=== PATIENT | male | born 1945 | race Caucasian/White ===

== ENCOUNTER 2020-03-23 13:59 | Inpatient (IN) | payer MEDICARE ==
[~2020-03-23 13:59] MED LIST: Iopamidol-370 76% 500 ML 1 ML ONE
[2020-03-23 14:22] LABS: #Eosinphils 0.1 thou/uL (0.0-0.7); #Lymphocytes 1.2 thou/uL (1.20-3.40); #Monocytes 0.7 thou/uL (0.11-0.59); #Neutrophils 4.9 thou/uL (1.40-6.50); %Basophils 0.1 % (0.0-1.0); %Eosinophils 1.2 % (0.0-10.0); %Monocytes 9.9 % (0.0-10.0); %Neutrophils 70.7 % (42.0-75.0); Hemoglobin 13.7 g/dL (14.0-18.0); Mean Corpuscular HGB CONC 34.1 g/dL (32.0-36.0); Mean Corpuscular Hemoglobin 32.4 pg (27.0-31.0); Mean Corpuscular Volume 95.1 fL (78.0-98.0); Mean Platelet Volume 8.9 fL (7.4-10.4); Platelet Count 210 thou/uL (130-400); RBC Distribution Width 12.3 % (11.5-14.5); Red Blood Cell (RBC) Count 4.23 mill/uL (4.70-6.10); White Blood Cell (WBC) Count 6.9 thou/uL (4.8-10.8)
[2020-03-23 14:28] LABS: PTT 26.7 sec (22.9-36.1); Prothrombin Time 13.2 sec (12.0-14.7)
[2020-03-23 14:41] LABS: ALT (SGPT) 68 U/L (8-55); AST (SGOT) 54 U/L (5-34); Alkaline Phosphatase 72 U/L (40-110); Anion Gap 15 mmol/L (10-20); BUN (Urea Nitrogen) 19 mg/dL (8.4-25.7); Bilirubin, Total 0.4 mg/dL (0.2-1.2); CK (CPK) 86 U/L (30-200); Calc. Creatinine Clearance 0 mL/min (70-130); Calcium 9.2 mg/dL (7.8-10.44); Carbon Dioxide 21 mmol/L (23-31); Chloride 108 mmol/L (98-107); Globulin 3.2 g/dL (2.4-3.5); Glucose 125 mg/dL (83-110); Potassium 4.4 mmol/L (3.5-5.1); Protein, Total 7.2 g/dL (5.8-8.1); Sodium 140 mmol/L (136-145)
--- NOTE | 2020-03-23 14:44 | CT ---
CT OF BRAIN PERFORMED WITHOUT CONTRAST ENHANCEMENT: 03/23/20 HISTORY: Left sided weakness. Small ventricular and sulcal prominence. There is no signs of intracerebral hemorrhage or extra-axial fluid collections. Mastoid air cells and visualized sinuses are clear. IMPRESSION: No acute intracranial abnormalities. Findings telephoned to Dr. Bain at 1410 hours.
[2020-03-23 15:11] LABS: CKMB 2.2 ng/mL (0-6.6)
[2020-03-23] MEDS ORDERED: Fentanyl 100 MCG/2 ML VIAL ONE (15:41)
[2020-03-23] MEDS ORDERED: niCARdipine 25 MG in Sodium Chloride 0.9% 250 ML 250 ML IVPB PRN (16:34)
[2020-03-23] MEDS ORDERED: Cepastat Lozenges 1 LOZ PO PRN (16:34)
[2020-03-23] MEDS ORDERED: Acetaminophen 325 MG TAB PO PRN (16:34)
[2020-03-23] MEDS ORDERED: Labetalol HCl 100 MG/20 ML VIAL SLOW IVP PRN (16:34)
[2020-03-23] MEDS ORDERED: Albuterol Sulfate 2.5 mg/3 ml Neb NEB PRN (16:34)
[2020-03-23] MEDS ORDERED: hydrALAZINE 20 MG/ML VIAL SLOW IVP PRN ×2 (16:34)
[2020-03-23] MEDS ORDERED: Sodium Chloride 0.65% Nasal 44 ML BOT EA NARE PRN (16:34)
[2020-03-23] MEDS ORDERED: [UNRECOGNIZED DRUG - REMARK] FS SCH (16:34)
[2020-03-23] MEDS ORDERED: Loperamide HCl 2 MG CAP PO PRN (16:34)
[2020-03-23] MEDS ORDERED: Senokot S 8.6-50 MG TAB PO PRN (16:34)
[2020-03-23] MEDS ORDERED: HYDROcodone/Acetaminophen 5/325 mg Tablet PO PRN (16:34)
[2020-03-23] MEDS ORDERED: Ondansetron ODT 4 MG TAB SL PRN (16:34)
[2020-03-23] MEDS ORDERED: Benzonatate 100 MG CAP PO PRN (16:34)
[2020-03-23] MEDS ORDERED: Acetaminophen 650 MG Suppository PR PRN (16:34)
[2020-03-23] MEDS ORDERED: Bisacodyl 10 MG SUPP PR PRN (16:34)
[2020-03-23] MEDS ORDERED: Ondansetron PF 4 MG/2 ML Vial IVP PRN ×2 (16:34)
[2020-03-23] MEDS ORDERED: Ondansetron ODT 4 MG TAB PO PRN (16:34)
[2020-03-23] MEDS ORDERED: Diabetic Tussin 200 MG/10 ML UDCUP PO PRN (16:34)
[2020-03-23] MEDS ORDERED: Calcium Carbonate 500 MG ChewTAB PO PRN (16:34)
[2020-03-23] MEDS ORDERED: Loratadine 10 MG TAB PO PRN (16:34)
--- NOTE | 2020-03-23 18:21 | PDOC.HHP ---
Hospitalist HPI - History of Present Illness Stroke History of Present Illness: 75-year-old male who had Covid positive on March 13, 2020, patient came to emergency room with a stroke alert, patient was having acute onset of left arm and left lower extremity numbness, patient reports that the symptoms started 30 minutes before coming to the emergency room while he was driving, patient also had blurry vision through left eye, patient has underlying history of atrial fibrillation and when he presented to emergency room at the time his blood pressure was 202/140, subsequently blood pressure reduced to 185/103, in the emergency room CT brain did not show any acute process and subsequently patient had CT angiography, which showed abrupt termination of right posterior cerebral P1 arterial segment, patient was given TPA and subsequently patient had clinical improvement, patient is being admitted in ICU for post TPA ED Course: Patient is given fentanyl 100 mcg, IV fluid 1 L given, TPA given at 2:46 PM VITAL SIGNS Arely Mar 23, 2020 14:20 TORITO Martinez [place] Brooke BP: 154/90, MAP: 111, Pulse: 82, Resp: 20, Temp: 97.6 (Oral), Pain: 0, O2 sat: 100 on (Room Air), Time: 03/23/2020 14:20. VITAL SIGNS Arely Mar 23, 2020 14:41 TORITO Martinez [place] Brooke BP: 133/92, Pulse: 81, Resp: 18, Temp: 97.6 (Oral), Pain: 0, O2 sat: 100 on (Room Air), Time: 03/23/2020 14:41. VITAL SIGNS Arely Mar 23, 2020 15:00 TORITO Martinez [place] Brooke BP: 157/102, MAP: 120, Pulse: 86, Resp: 16, Pain: 0, O2 sat: 98 on (Room Air), Time: 03/23/2020 15:00. VITAL SIGNS Arely Mar 23, 2020 15:15 TORITO Martinez [place] Brooke BP: 152/92, MAP: 112, Pulse: 88, Resp: 16, Pain: 0, O2 sat: 98 on (Room Air), Time: 03/23/2020 15:15. VITAL SIGNS Arely Mar 23, 2020 15:30 TORITO Martinez [place] Brooke BP: 130/71, Pulse: 88, Resp: 16, Pain: 6, O2 sat: 97 on (Room Air), Time: 03/23/2020 15:30. VITAL SIGNS Arely Mar 23, 2020 15:45 TORITO Martinez [place] Brooke BP: 142/74, Pulse: 96, Resp: 18, Pain: 6, O2 sat: 100 on (Room Air), Time: 03/23/2020 15:45. VITAL SIGNS Arely Mar 23, 2020 16:15 TORITO Martinez [place] Brooke BP: 139/70, Pulse: 94, Resp: 16, Temp: 98.5 (Oral), Pain: 0, O2 sat: 100 on (Room Air), Time: 03/23/2020 16:15. VITAL SIGNS Arely Mar 23, 2020 16:00 TORITO Martinez [place] Brooke BP: 141/63, MAP: 89, Pulse: 83, Resp: 16, Pain: 0, O2 sat: 99 on (Room Air), Time: 03/23/2020 16:00. VITAL SIGNS Arely Mar 23, 2020 16:30 TORITO Martinez [place] Brooke BP: 135/83, MAP: 100, Pulse: 86, Resp: 16, Pain: 0, O2 sat: 97 on (Room Air), Time: 03/23/2020 16:30. VITAL SIGNS [facility] Mar 23, 2020 16:45 TORITO Martinez [place] Brooke BP: 132/82, MAP: 98, Pulse: 91, Resp: 16, Pain: 0, O2 sat: 100 on (Room Air), Time: 03/23/2020 16:45. Hospitalist ROS - Review of Systems Constitutional: reports: weakness. denies: fever, chills, sweats, malaise, other Eyes: denies: pain, vision change, conjunctivae inflammation, eyelid inflammation, redness, other ENT: denies: ear pain, ear discharge, nose pain, nose discharge, nose congestion, mouth pain, mouth swelling, throat pain, throat swelling, other Respiratory: denies: cough, dry, shortness of breath, hemoptysis, SOB with excertion, pleuritic pain, sputum, wheezing, other Cardiovascular: denies: chest pain, palpitations, orthopnea, paroxysmal noc. dyspnea, edema, light headedness, other Gastrointestinal: denies: nausea, vomiting, abdominal pain, diarrhea, c onstipation, melena, hematochezia, other Genitourinary: denies: dysuria, frequency, incontinence, hematuria, retention, other Musculoskeletal: denies: neck pain, shoulder pain, arm pain, back pain, hand pain, leg pain, foot pain, other Skin: denies: rash, lesions, elvis, bruising, other Neurological: reports: weakness, numbness. denies: incoordination, change in speech, confusion, seizures, other - Medication Medications: Allergies No Known Allergies Allergy (Unverified 03/23/20 17:42) Resuscitation Status - Order Detail: 03/23/20 15:24 Resuscitation Status Routine Resuscitation Status: FULL: Full Resuscitation Home medication Allopurinol 100 mg twice daily Hospitalist History - Past Medical History Other Medical History: Atrial fibrillation Gout Carotid stenosis Obesity - Past Surgical History Other Surgical History: Right below-knee amputation Appendicectomy Left lower extremity bone graft Testicular surgery when he was a child - Family History Other Family History: No strong family history of premature coronary artery disease stroke or cancer - Social History Other Social History: Patient has history of alcohol use, less than 5 drinks per day, he is former smoker, he quit smoking more than 10 years ago, he lives at home with family, no illicit drug abuse - Exam General Appearance: NAD, awake alert Eye: PERRL, anicteric sclera ENT: normocephalic atraumatic, no oropharyngeal lesions Neck: supple, symmetric, no JVD, no thyromegaly Heart: no murmur, no gallops, irregular Respiratory: no wheezes, no rales, no ronchi Gastrointestinal: soft, non-tender, non-distended, normal bowel sounds, no palpable masses Gastrointestinal - other findings: Obesity Extremities: no cyanosis, no clubbing, no edema Extremities - other findings: Right below-knee amputation Skin: normal turgor, no lesions Neurological - other findings: Patient moves all 4 limbs, speech normal, Musculoskeletal: normal tone, normal strength Psychiatric: normal affect, normal behavior, A&O x 3 Hospitalist Results - Labs Result Diagrams: 03/23/20 14:11 03/23/20 14:11 Lab results: WBC 6.9 thou/uL (4.8-10.8) 03/23/20 14:11 Hgb 13.7 g/dL (14.0-18.0) L 03/23/20 14:11 Hct 40.2 % (42.0-52.0) L 03/23/20 14:11 MCV 95.1 fL (78.0-98.0) 03/23/20 14:11 Plt Count 210 thou/uL (130-400) 03/23/20 14:11 Neutrophils % 70.7 % (42.0-75.0) 03/23/20 14:11 Sodium 140 mmol/L (136-145) 03/23/20 14:11 Potassium 4.4 mmol/L (3.5-5.1) 03/23/20 14:11 Chloride 108 mmol/L (98-107) H 03/23/20 14:11 Carbon Dioxide 21 mmol/L (23-31) L 03/23/20 14:11 BUN 19 mg/dL (8.4-25.7) 03/23/20 14:11 Creatinine 0.94 mg/dL (0.7-1.3) 03/23/20 14:11 Glucose 125 mg/dL (83-110) H 03/23/20 14:11 Calcium 9.2 mg/dL (7.8-10.44) 03/23/20 14:11 Total Bilirubin 0.4 mg/dL (0.2-1.2) 03/23/20 14:11 AST 54 U/L (5-34) H 03/23/20 14:11 ALT 68 U/L (8-55) H 03/23/20 14:11 Alkaline Phosphatase 72 U/L (40-110) 03/23/20 14:11 Creatine Kinase 86 U/L (30-200) 03/23/20 14:11 CK-MB (CK-2) 2.2 ng/mL (0-6.6) 03/23/20 14:11 Troponin I 1.936 ng/mL (< 0.028) H* 03/23/20 14:11 Serum Total Protein 7.2 g/dL (5.8-8.1) 03/23/20 14:11 Albumin 4.0 g/dL (3.4-4.8) 03/23/20 14:11 - EKG Interpretation EKG: Atrial fibrillation pulse 94 QRS 64 no STEMI. - Radiology Interpretation Other Status: image reviewed by me Additional Comment: CT brain based on my review no acute intracranial process CT angiography showing abrupt termination of the right posterior cerebral P1 arterial segment, suggestive of acute thrombotic/embolic event, atherosclerosis with the stenosis of each internal carotid artery Patchy upper lobe infiltrate consistent with Covid pneumonitis Hospitalist H&P A/P - Problem (1) Acute ischemic cerebrovascular accident (CVA) involving posterior cerebral artery territory Code(s): I63.539 - CEREB INFRC D/T UNSP OCCLS OR STENOS OF UNSP POST CEREB ART Status: Acute (2) Atrial fibrillation Code(s): I48.91 - UNSPECIFIED ATRIAL FIBRILLATION Status: Acute (3) NSTEMI (non-ST elevated myocardial infarction) Code(s): I21.4 - NON-ST ELEVATION (NSTEMI) MYOCARDIAL INFARCTION Status: Acute (4) Pneumonia due to 2019 novel coronavirus Code(s): U07.1 - COVID-19; J12.89 - OTHER VIRAL PNEUMONIA Status: Acute (5) Gout Code(s): M10.9 - GOUT, UNSPECIFIED Status: Acute (6) Hypertension Code(s): I10 - ESSENTIAL (PRIMARY) HYPERTENSION Status: Acute (7) Dyslipidemia Code(s): E78.5 - HYPERLIPIDEMIA, UNSPECIFIED Status: Acute - Plan Plan: Admission to ICU Neurology consultation for post TPA CVA Cardiology consultation for NSTEMI and atrial fibrillation Aspirin and Lovenox will be started after 24 hours Patient will need long-term anticoagulation with Eliquis versus Xarelto upon discharge We will start metoprolol 25 mg twice daily Neuro check q. 1 hourly Echocardiography will be obtained as a part of stroke work-up and atrial fibrillation and NSTEMI MRI brain will obtain tomorrow We will start Lipitor 40 mg p.o. nightly Stroke team will be consulted Patient will need rehab evaluation. Regarding Covid pneumonia we will start Rocephin and azithromycin empirically Continue vitamin C, zinc sulfate, vitamin D3 His home medication will be reconciled Serial cardiac enzymes x3 Bedside swallow evaluation after that we will start a heart healthy diet Gentle IV fluid overnight 75 mill per hour only for 1 L and then discontinue DVT prophylaxis patient will need Lovenox GI prophylaxis Pepcid CODE STATUS patient is full code Disposition plan based on clinical course
[2020-03-23] MEDS: cefTRIAXone\\ROCEPHIN 1 GM in Sodium Chloride 0.9% 100 ML IVPB SCH (19:56)
[2020-03-23] MEDS: Metoprolol Tartrate 25 MG TAB PO SCH (19:57)
[2020-03-23] MEDS: Famotidine 20 MG TAB PO SCH (19:57)
[2020-03-23] MEDS: Atorvastatin Calcium 40 MG TAB PO SCH (19:57)
[2020-03-23] MEDS: Sodium Chloride 0.45% 1,000 ML IV SCH (19:57)
[2020-03-23] MEDS: Famotidine/PF 20 mg/2ml Vial SLOW IVP SCH (19:58)
[2020-03-23 21:18] LABS: SARS-CoV-2 MS2 Positive; SARS-CoV-2 N Gene Positive; SARS-CoV-2 S Gene Positive; SARS-CoV-2 by NAA DETECTED (NotDetected); SARS-CoV-2 orf1ab Positive
[2020-03-24 04:10] LABS: Bacteria/HPF None Seen HPF (None Seen); Bilirubin Negative (Negative); Blood, Urine Negative (Negative); Clarity Clear (Clear); Glucose, Urine (Dipstick) Normal (Negative); Ketone, Urine Negative (Negative); Leukocyte Negative Leu/uL (Negative); Nitrite Negative (Negative); Protein, Urine (Dipstick) 20 mg/dL (Neg-Trace); RBC/HPF 0-3 HPF (0-3); Specific Gravity, Urine 1.031 (1.002-1.036); Squamous Epithelial None Seen HPF (0-3); Urobilinogen Normal mg/dL (Less than 2); WBC/HPF 0-3 HPF (0-3)
[2020-03-24 04:13] LABS: Urine Culture Reflex No No
--- NOTE | 2020-03-24 07:21 | CT ---
PRELIMINARY REPORT/DIRECT RADIOLOGY/EMERGENCY AFTER HOURS PROCEDURE: EXAM: CT Head Without Intravenous Contrast. CLINICAL HISTORY: F/U TPA TECHNIQUE: Axial computed tomography images of the head/brain without intravenous contrast. COMPARISON: March 23, 2020 FINDINGS: BRAIN: No acute intraparenchymal hemorrhage. No mass lesion. Ischemic changes in the medial aspect o f the right temporal lobe are revealed. VENTRICLES: No hydrocephalus. ORBITS: The orbits are unremarkable. SINUSES AND MASTOIDS: The paranasal sinuses and mastoid air cells are clear. SOFT TISSUES: No significant facial or scalp soft tissue swelling evident. No radiopaque foreign body is seen. BONES: No acute skull fracture. IMPRESSION: Ischemic changes in the right temporal lobe are now visualized. No evidence of intracran ial hemorrhage. ELECTRONICALLY SIGNED BY: Sabas Toro MD Mar 24, 2020 4:59:45 AM TOOL/DIE MAKER FINAL REPORT BRAIN CT WITHOUT CONTRAST: EMERGENCY AFTER HOURS EXAM TIME: 4:32 AM. DATE: 03/24/2020. Developing abnormal low-attenuation changes in the medial posterior right temporal lobe/occipital lob e, evidence for developing infarct/ischemia. No evidence for acute hemorrhage. This report agrees with preliminary report. Transcribed Date/Time: 03/24/2020 8:33 AM
[2020-03-24] MEDS: Sodium Chloride 0.45% 1,000 ML IV SCH (08:30)
[2020-03-24] MEDS: Famotidine 20 MG TAB PO SCH ×2 (10:03→21:16)
[2020-03-24] MEDS: Ascorbic Acid 500 mg Chewable Tablet PO SCH (10:03)
[2020-03-24] MEDS: Cholecalciferol 1,000 UNITS (25 MCG) TAB PO SCH (10:03)
[2020-03-24] MEDS: Famotidine/PF 20 mg/2ml Vial SLOW IVP SCH ×2 (10:04→22:06)
[2020-03-24] MEDS: Metoprolol Tartrate 25 MG TAB PO SCH ×2 (10:04→21:16)
[2020-03-24] MEDS: Allopurinol 100 MG TAB PO SCH ×2 (10:04→21:16)
[2020-03-24] MEDS: Zinc Sulfate 220 MG CAP PO SCH (10:04)
--- NOTE | 2020-03-24 10:22 | RAD ---
EXAM: Chest one view: HISTORY: Weakness coughing diarrhea lethargy COMPARISON: None FINDINGS: Heart size: Within normal limits. Lungs: Minimal patchy alveolar and groundglass opacity changes in the left midlung zone which certain ly could represent minimal early findings of Covid pneumonia. No evidence for confluent lobar pneumonia, significant pleural effusion, acute edema, or pneumothorax , or other significant acute process. IMPRESSION: Minimal patchy alveolar and groundglass opacity changes in the left midlung zone which certainly coul d represent minimal or early Covid pneumonia. Continued short-term follow-up.
--- NOTE | 2020-03-24 12:54 | PDOC.HOSPP ---
- Subjective Encounter Date: 03/24/20 Encounter Time: 08:30 Subjective: Patient seen and examined bedside today, patient has significant clinical improvement, he denies any fever or chills, he denies any cough or shortness of breath, he is on room air, - Objective Vital Signs & Weight: Vital Signs (12 hours) Temp 03/24/20 03:00 98.2 F Weight Weight 235 lb Most Recent Monitor Data Heart Rate from ECG 65 NIBP 124/69 NIBP BP-Mean 87 Respiration from ECG 20 SpO2 100 I&O: 03/23/20 03/24/20 03/25/20 06:59 06:59 06:59 Intake Total 832 Output Total 1100 Balance -268 Result Diagrams: 03/23/20 14:11 03/23/20 14:11 Radiology Reviewed by me: Yes (Repeat CT brain showing ischemic changes in the right temporal lobe) EKG Reviewed by me: Yes (Nel cabrales) Hospitalist ROS - Review of Systems Constitutional: denies: fever, chills, sweats, weakness, malaise, other ENT: denies: ear pain, ear discharge, nose pain, nose discharge, nose congestion, mouth pain, mouth swelling, throat pain, throat swelling, other Respiratory: denies: cough, dry, shortness of breath, hemoptysis, SOB with excertion, pleuritic pain, sputum, wheezing, other Cardiovascular: denies: chest pain, palpitations, orthopnea, paroxysmal noc. dyspnea, edema, light headedness, other Gastrointestinal: denies: nausea, vomiting, abdominal pain, diarrhea, constipation, melena, hematochezia, other Genitourinary: denies: dysuria, frequency, incontinence, hematuria, retention, other Musculoskeletal: denies: neck pain, shoulder pain, arm pain, back pain, hand pain, leg pain, foot pain, other Skin: denies: rash, lesions, elvis, bruising, other - Medication Medications: Active Medications Generic Name Dose Route Start Last Admin Trade Name Freq PRN Reason Stop Dose Admin Allopurinol 100 mg 03/24/20 09:00 03/24/20 10:04 Allopurinol 100 Mg Tab PO 100 mg BID YASEMIN Administration Ascorbic Acid 1,000 mg 03/24/20 09:00 03/24/20 10:03 Ascorbic Acid 500 Mg Chewable Tablet PO 1,000 mg DAILY YASEMIN Administration Atorvastatin Calcium 40 mg 03/23/20 21:00 03/23/20 19:57 Atorvastatin Calcium 40 Mg Tab PO 40 mg HS YASEMIN Administration Cholecalciferol 1,000 units 03/24/20 09:00 03/24/20 10:03 Cholecalciferol 1,000 Units (25 Mcg) Tab PO 1,000 units DAILY YASEMIN Administration Famotidine 20 mg 03/23/20 21:00 03/24/20 10:03 Famotidine 20 Mg Tab PO 20 mg BID YASEMIN Administration Famotidine 20 mg 03/23/20 21:00 03/24/20 10:04 Famotidine/Pf 20 Mg/2ml Vial SLOW IVP Not Given Q12HR YASEMIN Ceftriaxone Sodium 1 gm/ 100 mls @ 200 mls/hr 03/23/20 18:00 03/23/20 19:56 Sodium Chloride IVPB 100 mls 1800 YASEMIN Administration Metoprolol Tartrate 25 mg 03/23/20 21:00 03/24/20 10:04 Metoprolol Tartrate 25 Mg Tab PO 25 mg BID YASEMIN Administration Miscellaneous Information 1 each 03/23/20 16:34 03/23/20 18:23 Communication Order- Alteplase 03/23 FS 03/24/20 15:00 Not Given NOW [facility] Zinc Sulfate 220 mg 03/24/20 09:00 03/24/20 10:04 Zinc Sulfate 220 Mg Cap PO 220 mg DAILY YASEMIN Administration - Exam General Appearance: NAD, awake alert Eye: PERRL, anicteric sclera ENT: normocephalic atraumatic, no oropharyngeal lesions Neck: supple, symmetric, no JVD, no thyromegaly Heart: no murmur, no gallops, no rubs, irregular Respiratory: no wheezes, no rales, no ronchi Gastrointestinal: soft, non-tender, non-distended, normal bowel sounds Extremities: no cyanosis, no clubbing Extremities - other findings: Right below-knee amputation Skin: normal turgor, no lesions Neurological: no focal deficits Musculoskeletal: normal tone, normal strength, no muscle wasting Psychiatric: normal affect, normal behavior, A&O x 3 Hosp A/P (1) Acute ischemic cerebrovascular accident (CVA) involving posterior cerebral artery territory Code(s): I63.539 - CEREB INFRC D/T UNSP OCCLS OR STENOS OF UNSP POST CEREB ART Status: Acute (2) Atrial fibrillation Code(s): I48.91 - UNSPECIFIED ATRIAL FIBRILLATION Status: Acute Qualifiers: Atrial fibrillation type: paroxysmal Qualified Code(s): I48.0 - Paroxysmal atrial fibrillation (3) NSTEMI (non-ST elevated myocardial infarction) Code(s): I21.4 - NON-ST ELEVATION (NSTEMI) MYOCARDIAL INFARCTION Status: Acute (4) Pneumonia due to 2019 novel coronavirus Code(s): U07.1 - COVID-19; J12.89 - OTHER VIRAL PNEUMONIA Status: Acute (5) Gout Code(s): M10.9 - GOUT, UNSPECIFIED Status: Acute (6) Hypertension Code(s): I10 - ESSENTIAL (PRIMARY) HYPERTENSION Status: Acute (7) Dyslipidemia Code(s): E78.5 - HYPERLIPIDEMIA, UNSPECIFIED Status: Acute - Plan old records reviewed/req, continue antibiotics, PT/OT, respiratory therapy, DVT proph w/lovenox Discontinue IV fluid Resume diet Continue stroke team evaluation Neurology to see this patient today Cardiology will see him today MRI brain and echocardiography pending Eventually this patient will need chronic anticoagulation because of high chads 2 score Continue empiric antibiotic therapy for now Once 24 hours after TPA over then will transfer him to telemetry floor
--- NOTE | 2020-03-24 14:59 | CON ---
DATE OF CONSULTATION: 03/24/2020 INDICATION FOR CONSULTATION: This is a 75-year-old patient, who suffered a CVA, who has a history of atrial fibrillation. HISTORY OF PRESENT ILLNESS: This is a very unfortunate 75-year-old gentleman, who has a history of atrial fibrillation for the last 11 years. He has refused to take medications except for an aspirin saying that he does not want to take medications, who then presented after having some left-sided weakness and numbness and was found to have a CVA. He also underwent tPA. He had a right posterior cerebral artery essentially occlusion and this has now apparently improved. He only has some minimal facial numbness. Otherwise, he is doing quite well and perhaps some difficulty from the left eye vision. Otherwise, he has improved significantly from his left-sided weakness. At this time, he is in intensive care unit. He is alert, he is oriented, and he is conversing normally without difficulties. Also, on the CTA, it was noted that he does have significant carotid artery stenosis, both bilateral internal carotid arteries of 90%. This may have been the etiology of his CVA. Obviously, he has atrial fibrillation. This also may be one of the etiologies of the CVA; however, severe stenosis be more difficult for the clot to traverse the 90% stenosis of the internal carotid arteries. He also recently was diagnosed with COVID a couple of weeks ago, which also could cause increased coagulation. At this time, he denies any heart problems. He has had no problems except for the atrial fibrillation. He denies any chest pain or shortness of breath. He did state he possibly had some type of an echo or stress test many years ago, but is uncertain. Otherwise, he seems to be doing quite well and denies any chest pain that would indicate he has coronary disease. PAST MEDICAL HISTORY: Significant for the atrial fibrillation. He has had a right BKA after having a fracture that did not heal, but other than that, his past medical history is relatively unremarkable. He does have some gout also. He has had an appendectomy and also he has had a bone graft performed, which failed in his right leg, and he had his testicular surgery when he was a child. FAMILY HISTORY: Noncontributory. SOCIAL HISTORY: He has occasional alcohol use, less than 5 drinks a day. He smoked in the past, but stopped many years ago. He lives with his family. He has no illicit drug use. REVIEW OF SYSTEMS: Relatively unremarkable except what is noted in the History of Present Illness. PHYSICAL EXAMINATION: GENERAL: Reveals a well-developed, well-nourished, very pleasant gentleman, who is in no acute distress. VITAL SIGNS: His blood pressure is 111/72, heart rate is 65 and irregular, respiratory rate is about 20 to 25, O2 saturation is 99%. HEENT: Reveals the head to be normocephalic and atraumatic. He does have bilateral carotid bruits, but the pulses are present. CHEST: Clear to auscultation. CARDIOVASCULAR: Reveals an irregular rhythm. There were no gross murmurs noted. ABDOMEN: Soft and nontender. EXTREMITIES: Showed no clubbing, cyanosis, or edema. He is status post right BKA. NEUROLOGIC: He appears to be intact except for some mild left facial numbness. LABORATORY DATA: Shows a WBC of 6.9, hemoglobin 13.7, platelet count was 210,000. Sodium was 140, potassium 4.4, chloride 108, BUN was 19 with a creatinine 0.94. Blood sugar was 125. His troponin I was slightly elevated at 1.9. This would not be unusual in the face of a CVA. MB was only 2.2. Most likely, this indicates a type-2 myocardial infarction. IMPRESSION AND PLAN: 1. Right posterior cerebral artery distribution CVA, which underwent tPA and there is minimal residual at this time. I would continue his medications once the 24-hour period is up. He will need to be started on oral anticoagulation. 2. Atrial fibrillation. He has not been treated in the past, but now is willing to undergo oral therapy. We will start him on Eliquis or Xarelto once the 24-hour period has resolved. 3. Carotid artery stenosis. He will need to be seen by the CT surgeons for possible carotid endarterectomy. 4. History of gout. This will be dealt by the primary care service. 5. History of hypercholesterolemia. He has been placed on Lipitor. We will continue this medication. 6. History of recent COVID pneumonia. He appears to have gotten over this, but this also could be one of the etiologies of the CVA as they do have hypercoagulability. 7. Hypertension, this is under good control at this time. We will continue his present medications from a cardiac standpoint. At this time, I would suggest that we evaluate the echocardiogram and when he is more stable, I would suggest the CT surgery evaluation for his carotids. He will also need to undergo stress testing at some point in time to rule out evidence of underlying ischemia. The heart rate is very well controlled on the present medications. We will be more than happy to continue to follow the patient with you. Further recommendations will depend on the results of the echocardiogram as well as possible stress testing. Job ID: [id number]
--- NOTE | 2020-03-24 15:00 | CON ---
NEUROLOGY CONSULTATION DATE OF CONSULTATION: 03/24/2020 REASON FOR CONSULTATION: Stroke, status post tPA. HISTORY OF PRESENT ILLNESS: Mr. Pawan Muniz is a 75-year-old male with medical history significant for COVID positive on March 13, 2020, presented to the emergency room with acute onset left upper and lower extremity numbness with left facial paresthesias and blurred vision. Per patient, his symptoms started 30 minutes before he arrived to the emergency room while he was driving because he had blurred vision and it was difficult for him to see through his left eye. He does have history of atrial fibrillation and presented to the emergency room in hypertensive emergency. His blood pressure was 202/140, which was subsequently reduced to 185/103. In the emergency room, head CT was done, which was negative for acute intracranial pathology and CT angiography showed abrupt termination of the right posterior cerebral P1 arterial segment. He was given tPA, which showed significant improvement, and the patient is admitted in the ICU post-tPA. The patient denies nausea, vomiting, headache, chest pain, abdominal pain, but is positive for COVID, but denies any symptoms. His is also positive for COVID and is having respiratory symptoms at this time. REVIEW OF SYSTEMS: All systems reviewed and were negative except the pertinent positives and negatives mentioned in HPI. ALLERGIES: NO KNOWN DRUG ALLERGIES. HOME MEDICATIONS: Allopurinol 100 mg twice daily. PAST MEDICAL HISTORY: Atrial fibrillation, gout, carotid stenosis, and obesity. PAST SURGICAL HISTORY: Right below-knee amputation, appendectomy. FAMILY HISTORY: No family history of premature coronary artery disease or cancer. SOCIAL HISTORY: The patient has a history of alcohol abuse, 5 drinks per day. He is a former smoker, quit smoking 10 years ago. Lives at home with his family. Denies illegal drug use. Vital Signs & Weight: Vital Signs (12 hours) Temp 03/24/20 03:00 98.2 F Weight Weight 235 lb Most Recent Monitor Data Heart Rate from ECG 65 NIBP 124/69 NIBP BP-Mean 87 Respiration from ECG 20 SpO2 100 I&O: 03/23/20 03/24/20 03/25/20 06:59 06:59 06:59 Intake Total 832 Output Total 1100 Balance -268 Active Medications Generic Name Dose Route Start Last Admin Trade Name Freq PRN Reason Stop Dose Admin Allopurinol 100 mg 03/24/20 09:00 03/24/20 10:04 Allopurinol 100 Mg Tab PO 100 mg BID YASEMIN Administration Ascorbic Acid 1,000 mg 03/24/20 09:00 03/24/20 10:03 Ascorbic Acid 500 Mg Chewable Tablet PO 1,000 mg DAILY YASEMIN Administration Atorvastatin Calcium 40 mg 03/23/20 21:00 03/23/20 19:57 Atorvastatin Calcium 40 Mg Tab PO 40 mg HS YASEMIN Administration Cholecalciferol 1,000 units 03/24/20 09:00 03/24/20 10:03 Cholecalciferol 1,000 Units (25 Mcg) Tab PO 1,000 units DAILY YASEMIN Administration Famotidine 20 mg 03/23/20 21:00 03/24/20 10:03 Famotidine 20 Mg Tab PO 20 mg BID YASEMIN Administration Famotidine 20 mg 03/23/20 21:00 03/24/20 10:04 Famotidine/Pf 20 Mg/2ml Vial SLOW IVP Not Given Q12HR [facility] Ceftriaxone Sodium 1 gm/ 100 mls @ 200 mls/hr 03/23/20 18:00 03/23/20 19:56 Sodium Chloride IVPB 100 mls 1800 YASEMIN Administration Metoprolol Tartrate 25 mg 03/23/20 21:00 03/24/20 10:04 Metoprolol Tartrate 25 Mg Tab PO 25 mg BID YASEMIN Administration Miscellaneous Information 1 each 03/23/20 16:34 03/23/20 18:23 Communication Order- Alteplase 03/23 FS 03/24/20 15:00 Not Given NOW [facility] Zinc Sulfate 220 mg 03/24/20 09:00 03/24/20 10:04 Zinc Sulfate 220 Mg Cap PO 220 mg DAILY YASEMIN Administration PHYSICAL EXAMINATION: General Appearance: NAD, awake alert Eye: PERRL, anicteric sclera ENT: normocephalic atraumatic, no oropharyngeal lesions Neck: supple, symmetric, no JVD, no thyromegaly Heart: no murmur, no gallops, irregular Respiratory: no wheezes, no rales, no ronchi Gastrointestinal: soft, non-tender, non-distended, normal bowel sounds, no palpable masses Gastrointestinal - other findings: Obesity Extremities: no cyanosis, no clubbing, no edema Extremities - other findings: Right below-knee amputation Skin: normal turgor, no lesions Neurological - Mental status; the patient is alert and oriented to person, place, and time. Speech is clear. Recent and remote memory, intact. Motor; muscle tone and bulk are normal. Moving all 4 extremities equally and symmetrically. No pronator drift. Left-sided weakness resolved. Sensory intact. Cranial nerves 2 through 12 intact except decreased sensation to light touch in V1, V2, V3 distribution on the left side. Gait deferred due to the patient's safety reasons. Cerebellar, finger-nose testing intact DIAGNOSTIC STUDIES: Data reviewed. Lab results: WBC 6.9 thou/uL (4.8-10.8) 03/23/20 14:11 Hgb 13.7 g/dL (14.0-18.0) L 03/23/20 14:11 Hct 40.2 % (42.0-52.0) L 03/23/20 14:11 MCV 95.1 fL (78.0-98.0) 03/23/20 14:11 Plt Count 210 thou/uL (130-400) 03/23/20 14:11 Neutrophils % 70.7 % (42.0-75.0) 03/23/20 14:11 Sodium 140 mmol/L (136-145) 03/23/20 14:11 Potassium 4.4 mmol/L (3.5-5.1) 03/23/20 14:11 Chloride 108 mmol/L (98-107) H 03/23/20 14:11 Carbon Dioxide 21 mmol/L (23-31) L 03/23/20 14:11 BUN 19 mg/dL (8.4-25.7) 03/23/20 14:11 Creatinine 0.94 mg/dL (0.7-1.3) 03/23/20 14:11 Glucose 125 mg/dL (83-110) H 03/23/20 14:11 Calcium 9.2 mg/dL (7.8-10.44) 03/23/20 14:11 Total Bilirubin 0.4 mg/dL (0.2-1.2) 03/23/20 14:11 AST 54 U/L (5-34) H 03/23/20 14:11 ALT 68 U/L (8-55) H 03/23/20 14:11 Alkaline Phosphatase 72 U/L (40-110) 03/23/20 14:11 Creatine Kinase 86 U/L (30-200) 03/23/20 14:11 CK-MB (CK-2) 2.2 ng/mL (0-6.6) 03/23/20 14:11 Troponin I 1.936 ng/mL (< 0.028) H* 03/23/20 14:11 Serum Total Protein 7.2 g/dL (5.8-8.1) 03/23/20 14:11 Albumin 4.0 g/dL (3.4-4.8) 03/23/20 14:11 EKG: Atrial fibrillation pulse 94 QRS 64 no STEMI. - Radiology Interpretation CT brain based on my review no acute intracranial process CT angiography showing abrupt termination of the right posterior cerebral P1 arterial segment, suggestive of acute thrombotic/embolic event, atherosclerosis with the stenosis of each internal carotid artery Patchy upper lobe infiltrate consistent with Covid pneumonitis ASSESSMENT AND PLAN: (1) Acute ischemic cerebrovascular accident (CVA) involving posterior cerebral artery territory Code(s): I63.539 - CEREB INFRC D/T UNSP OCCLS OR STENOS OF UNSP POST CEREB ART Status: Acute (2) Atrial fibrillation Code(s): I48.91 - UNSPECIFIED ATRIAL FIBRILLATION Status: Acute (3) NSTEMI (non-ST elevated myocardial infarction) Code(s): I21.4 - NON-ST ELEVATION (NSTEMI) MYOCARDIAL INFARCTION Status: Acute (4) Pneumonia due to 2019 novel coronavirus Code(s): U07.1 - COVID-19; J12.89 - OTHER VIRAL PNEUMONIA Status: Acute (5) Gout Code(s): M10.9 - GOUT, UNSPECIFIED Status: Acute (6) Hypertension Code(s): I10 - ESSENTIAL (PRIMARY) HYPERTENSION Status: Acute (7) Dyslipidemia Code(s): E78.5 - HYPERLIPIDEMIA, UNSPECIFIED Status: Acute Mr. Pawan Muniz is a 75-year-old male, who was consulted for stroke-like symptoms including left-sided weakness and paresthesias, which are almost resolved. His stroke scale was completely improved, and right now, he has residual. Left-sided facial paresthesias and weakness have been resolved and his speech is better. Continue neuro checks every 2 hours. Telemetry to rule out arrhythmias. Permissive control of blood pressure at this time. Strict control of blood glucose. Neuro checks every 2 hours. Cardiology consult for NSTEMI and atrial fibrillation. Repeat head CT is negative, but repeat head CT 24 hours post-tPA around 3 p.m., if negative for bleed, then consider starting aspirin and high-intensity statin for secondary stroke prevention. Need to have further stroke workup including MRI of the brain, 2D echocardiogram. PT/OT/speech. Continue home medications. Continue medical management per primary team. DVT prophylaxis with SCDS. . We will continue to follow. Thank you for the consult. Job ID: [id number] MITALI
[2020-03-24 16:01] LABS: INR-International Normal Ratio 1.3; PTT 30.8 sec (22.9-36.1); Prothrombin Time 16.2 sec (12.0-14.7)
[2020-03-24 16:14] LABS: ALT (SGPT) 47 U/L (8-55); AST (SGOT) 33 U/L (5-34); Albumin 3.5 g/dL (3.4-4.8); Alkaline Phosphatase 63 U/L (40-110); Anion Gap 14 mmol/L (10-20); BUN (Urea Nitrogen) 17 mg/dL (8.4-25.7); Bilirubin, Total 0.3 mg/dL (0.2-1.2); CRP (Inflammatory) 2.51 mg/dL (= or < 0.5); Calc. Creatinine Clearance 117 mL/min (70-130); Calcium 8.2 mg/dL (7.8-10.44); Carbon Dioxide 23 mmol/L (23-31); Cardiac Risk 4.7 (Less than 4.5); Chloride 107 mmol/L (98-107); Cholesterol 159 mg/dl (< 200 Desired); Globulin 2.6 g/dL (2.4-3.5); Glucose 95 mg/dL (83-110); HDL Cholesterol 34 mg/dL (>60 Neg Risk); LDL Cholesterol, Calculated 96 mg/dL; Potassium 4.1 mmol/L (3.5-5.1); Protein, Total 6.1 g/dL (5.8-8.1); Sodium 140 mmol/L (136-145); Triglycerides 145 mg/dL (Less than 150)
[2020-03-24 16:18] LABS: Band 18 % (5-11); Eosinophils 1 % (0-10); Hemoglobin 12.4 g/dL (14.0-18.0); Lymphocytes 12 % (21-51); MDiff Complete? YES; Mean Corpuscular Hemoglobin 33.7 pg (27.0-31.0); Mean Corpuscular Volume 96.2 fL (78.0-98.0); Mean Platelet Volume 9.6 fL (7.4-10.4); Monocytes 9 % (0-10); Neutrophil 54 % (42-75); Platelet Count 209 thou/uL (130-400); Platelet Morphology Comment Appears Adequate; Polychromasia SLIGHT = 2-3 cells (100X) (0-2/hpf); RBC Distribution Width 12.3 % (11.5-14.5); Reactive Lymphocytes 6 % (0-10); Red Blood Cell (RBC) Count 3.68 mill/uL (4.70-6.10); White Blood Cell (WBC) Count 5.7 thou/uL (4.8-10.8)
[2020-03-24 16:24] LABS: D-Dimer Test Greater than 20.00 *mcg/mL (0.27-0.43)
[2020-03-24 16:26] LABS: Critical Call Chem Troponin I RESULT DECREASING; Troponin I 1.904 ng/mL (< 0.028)
--- NOTE | 2020-03-24 16:53 | CT ---
CT HEAD WITHOUT IV CONTRAST COMPARISON: 03/24/2020 HISTORY: Follow-up evaluation after TPA administration. TECHNIQUE: Axial CT imaging at 5 mm intervals from vertex through skull base without contrast FINDINGS: Stable low-attenuation area in the medial aspect of the right temporal lobe is again seen compatible with area of infarction. No new area of cortical infarction is seen. No intraparenchymal or extra-axial hemorrhage is identified. No midline shift is present. There is slight effacement of the report of the right lateral ventricle. No other interval change. IMPRESSION: 1. Infarction posterior and medial right temporal lobe overall similar to recent study obtained on date at 0432 hours. 2. No intraparenchymal or extra-axial hemorrhage is seen.
[2020-03-24 18:36] LABS: Critical Call Chem Troponin I RESULT DECREASING; Troponin I 1.836 ng/mL (< 0.028)
[2020-03-24] MEDS: cefTRIAXone\\ROCEPHIN 1 GM in Sodium Chloride 0.9% 100 ML IVPB SCH (18:59)
[2020-03-24 20:19] VITALS: BMI 35.6
[2020-03-24] MEDS: Azithromycin 500 MG in Sodium Chloride 0.9% 250 ML 250 ML IVPB SCH (21:16)
[2020-03-24] MEDS: Atorvastatin Calcium 40 MG TAB PO SCH (21:16)
--- NOTE | 2020-03-25 06:30 | CON ---
DATE OF CONSULTATION: Pawan Muniz is a 75-year-old gentleman, obese who seeks no medical care. I spoke to son by phone. He was sick about 10 days ago. On 03/13/2020 he was diagnosed to have Alfred positive infection, but it is unclear whether he took any medication. Comes in last night with stroke-like symptoms. Elevated blood pressure. His CT of the head was negative. He apparently was given tPA. Today, CT shows a right-sided ischemic event with left-sided weakness. Son tells me that the patient has a longstanding history of atrial fibrillation, gout, obesity, but does not see any doctor. Takes only vitamins. PREVIOUS SURGERIES: 1. Below-knee amputation. 2. Appendix. 3. Leg bone graft. 4. Some kind of testicular surgery. MEDICATIONS: His list of medicine was listed as allopurinol 100 mg twice a day. ALLERGIES: NONE. SOCIAL HISTORY: Tobacco, quit smoking 30 years ago. Alcohol minimal. PHYSICAL EXAMINATION: VITAL SIGNS: Temperature is 98, pulse 72, respiratory rate 18, sats are 100% on room air. CHEST: No wheezing. No crackles. CARDIAC: Normal S1, S2. No masses. LABORATORY DATA: White count 6000. Lytes are normal. Troponin is 1.31. Alfred positive once again detected. I did not see any chest x-ray was being ordered. His CT brain today shows as described above, and a CT angio last night shows abrupt termination in the right posterior right occipital lobe area, event suggestive of thrombus. IMPRESSION: 1. Status post tPA, acute cerebrovascular accident, left-sided weakness. CT this morning shows right temporal lobe ischemic changes. No hemorrhage. 2. Alfred positive status. 3. Gout. 4. Peripheral vascular disease. 5. Atrial fibrillation. PLAN: Baseline x-ray is being ordered. Otherwise, supportive care. We will follow in the ICU. 70 minutes, 50% direct patient care. Job ID: [id number]
[2020-03-25] MEDS: Aspirin 325 MG TAB PO SCH (08:15)
[2020-03-25] MEDS: Zinc Sulfate 220 MG CAP PO SCH (08:15)
[2020-03-25] MEDS: Metoprolol Tartrate 25 MG TAB PO SCH (08:15)
[2020-03-25] MEDS: Enoxaparin Sodium 100 MG/ML SYRINGE SC SCH ×2 (08:15→20:45)
[2020-03-25] MEDS: Famotidine 20 MG TAB PO SCH ×2 (08:15→20:46)
[2020-03-25] MEDS: Allopurinol 100 MG TAB PO SCH ×2 (08:15→20:46)
[2020-03-25] MEDS: Cholecalciferol 1,000 UNITS (25 MCG) TAB PO SCH (08:15)
[2020-03-25] MEDS: Ascorbic Acid 500 mg Chewable Tablet PO SCH (08:15)
[2020-03-25] MEDS ORDERED: Enoxaparin Sodium 40 MG/0.4 ML SYRINGE SC SCH (09:00)
--- NOTE | 2020-03-25 09:36 | PDOC.HOSPP ---
- Subjective Encounter Date: 03/25/20 Encounter Time: 07:10 Subjective: Patient seen and examined bedside today, patient is doing much better,He does not have any fever or chills, he is on room air, - Objective Vital Signs & Weight: Vital Signs (12 hours) Temp Pulse Resp BP BP Pulse Ox 03/25/20 08:15 98.0 F 71 18 154/75 H 97 03/25/20 04:00 97.5 F L 75 16 104/55 L 97 03/25/20 00:00 99.5 F 69 18 126/54 L 98 Weight Weight 234 lb 15.992 oz Most Recent Monitor Data Heart Rate from ECG 72 NIBP 120/58 NIBP BP-Mean 78 Respiration from ECG 21 SpO2 97 I&O: 03/24/20 03/25/20 03/26/20 06:59 06:59 06:59 Intake Total 832 2480 Output Total 1100 1400 Balance -268 1080 Result Diagrams: 03/24/20 15:26 03/24/20 15:26 EKG Reviewed by me: Yes (Nel cabrales) Hospitalist ROS - Review of Systems Constitutional: denies: fever, chills, sweats, weakness, malaise, other Respiratory: denies: cough, dry, shortness of breath, hemoptysis, SOB with excertion, pleuritic pain, sputum, wheezing, other Cardiovascular: denies: chest pain, palpitations, orthopnea, paroxysmal noc. dyspnea, edema, light headedness, other Gastrointestinal: denies: nausea, vomiting, abdominal pain, diarrhea, constipation, melena, hematochezia, other Genitourinary: denies: dysuria, frequency, incontinence, hematuria, retention, other Musculoskeletal: denies: neck pain, shoulder pain, arm pain, back pain, hand pain, leg pain, foot pain, other - Medication Medications: Active Medications Generic Name Dose Route Start Last Admin Trade Name Freq PRN Reason Stop Dose Admin Allopurinol 100 mg 03/24/20 09:00 03/25/20 08:15 Allopurinol 100 Mg Tab PO 100 mg BID YASEMIN Administration Ascorbic Acid 1,000 mg 03/24/20 09:00 03/25/20 08:15 Ascorbic Acid 500 Mg Chewable Tablet PO 1,000 mg DAILY YASEMIN Administration Aspirin 325 mg 03/25/20 09:00 03/25/20 08:15 Aspirin 325 Mg Tab PO 325 mg DAILY YASEMIN Administration Atorvastatin Calcium 40 mg 03/23/20 21:00 03/24/20 21:16 Atorvastatin Calcium 40 Mg Tab PO 40 mg HS YASEMIN Administration Cholecalciferol 1,000 units 03/24/20 09:00 03/25/20 08:15 Cholecalciferol 1,000 Units (25 Mcg) Tab PO 1,000 units DAILY YASEMIN Administration Enoxaparin Sodium 100 mg 03/25/20 09:00 03/25/20 08:15 Enoxaparin Sodium 100 Mg/Ml Syringe SC 100 mg 0900,2100 YASEMIN Administration Famotidine 20 mg 03/23/20 21:00 03/25/20 08:15 Famotidine 20 Mg Tab PO 20 mg BID YASEMIN Administration Azithromycin 500 mg/ Sodium 250 mls @ 250 mls/hr 03/24/20 20:00 03/24/20 21:16 Chloride IVPB 250 mls 2000 YASEMIN Administration Ceftriaxone Sodium 1 gm/ 100 mls @ 200 mls/hr 03/23/20 18:00 03/24/20 18:59 Sodium Chloride IVPB Not Given 1800 [facility] Metoprolol Tartrate 25 mg 03/23/20 21:00 03/25/20 08:15 Metoprolol Tartrate 25 Mg Tab PO 25 mg BID YASEMIN Administration Zinc Sulfate 220 mg 03/24/20 09:00 03/25/20 08:15 Zinc Sulfate 220 Mg Cap PO 220 mg DAILY YASEMIN Administration - Exam General Appearance: NAD, awake alert Eye: PERRL, anicteric sclera ENT: normocephalic atraumatic, no oropharyngeal lesions Neck: supple, symmetric, no JVD, no thyromegaly Heart: no murmur, no gallops, no rubs, irregular Respiratory: no wheezes, no rales, no ronchi Gastrointestinal: soft, non-tender, non-distended, normal bowel sounds, no palpable masses Extremities: no cyanosis, no clubbing, no edema Skin: normal turgor, no lesions Neurological: no new deficit Neurological - other findings: He is moving all 4 limbs, his speech is normal, Musculoskeletal: normal tone, normal strength Psychiatric: normal affect, normal behavior Hosp A/P (1) Acute ischemic cerebrovascular accident (CVA) involving posterior cerebral artery territory Code(s): I63.539 - CEREB INFRC D/T UNSP OCCLS OR STENOS OF UNSP POST CEREB ART Status: Acute (2) Atrial fibrillation Code(s): I48.91 - UNSPECIFIED ATRIAL FIBRILLATION Status: Acute Qualifiers: Atrial fibrillation type: paroxysmal Qualified Code(s): I48.0 - Paroxysmal atrial fibrillation (3) NSTEMI (non-ST elevated myocardial infarction) Code(s): I21.4 - NON-ST ELEVATION (NSTEMI) MYOCARDIAL INFARCTION Status: Acute Plan: This is because of demand ischemia rather than ischemic etiology (4) Pneumonia due to 2019 novel coronavirus Code(s): U07.1 - COVID-19; J12.89 - OTHER VIRAL PNEUMONIA Status: Acute (5) Gout Code(s): M10.9 - GOUT, UNSPECIFIED Status: Chronic (6) Hypertension Code(s): I10 - ESSENTIAL (PRIMARY) HYPERTENSION Status: Chronic (7) Dyslipidemia Code(s): E78.5 - HYPERLIPIDEMIA, UNSPECIFIED Status: Chronic (8) Carotid stenosis Code(s): I65.29 - OCCLUSION AND STENOSIS OF UNSPECIFIED CAROTID ARTERY Status: Chronic Qualifiers: Laterality: bilateral Qualified Code(s): I65.23 - Occlusion and stenosis of bilateral carotid arteries - Plan old records reviewed/req, continue antibiotics, PT/OT, director of social media marketing, DVT proph w/lovenox Continue stroke team evaluation Today we will change Lovenox 1 mg/kg subcu twice daily Based on cardiology recommendation will consider consultation with cardiothoracic surgeon for carotid stenosis, because of acute stroke doubt patient will need any surgical intervention during this admission, he will benefit from continuous monitoring as an outpatient basis If patient continued to do better and if there is no further plan then will consider changing to oral anticoagulation therapy with Eliquis upon discharge MRI brain and echocardiography pending I tried to reach out to patient's family member to update condition but no response on phone, Medication reviewed and continue provide symptomatic and supportive care
--- NOTE | 2020-03-25 11:24 | CON ---
DATE OF CONSULTATION: HISTORY OF PRESENT ILLNESS: This is a 75-year-old gentleman, he and his have been diagnosed with COVID with this gentleman's test being on 03/13. His has been ill with it, but is at home, and he has not had any particularly significant symptoms. He was, however, admitted after the onset of left arm and leg numbness as well as perhaps some left-sided visual disturbance. He was evaluated and found to have a right temporal stroke and elevated troponin of greater than 1. PAST MEDICAL HISTORY: Negative for hypertension, diabetes, elevated cholesterol level. He does have a history of atrial fibrillation, diagnosed at the time he became Medicare eligible and evaluation in [place], [place] at that time was performed; however, the patient opted not to take any medications for that. He does use some [id number] medicines including coenzyme Q. He was taking a baby aspirin a day and was taking allopurinol for gout. SOCIAL HISTORY: He has not smoked since 1983. 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 PAST SURGICAL HISTORY: Includes previous appendectomy and a previous right below-knee amputation for trauma. He also had undescended testicle treated as a child. MEDICATIONS: At home include; 1. Allopurinol 100 b.i.d. 2. Aspirin 81 a day. 3. Several [id number] medications. I have reviewed the CT angiogram of his chest and neck and he has surprisingly extensive disease with rather severe stenosis at the origin of his right innominate artery, left common carotid artery. He has significant disease in his bilateral internal carotid arteries in the cervical portion and then has severe disease in the bilateral internal carotid artery siphons. Examination was not performed due to the fact that the patient is COVID positive. However, I did speak with him on the phone about his past history and activity level, etc. At this time, I am uncertain as to the best approach for this gentleman whether long-term medical therapy is beneficial as multiple interventions, which would involve bilateral carotid endarterectomies, innominate artery stenting, and left common carotid artery stenting, and then of course, his intracranial disease is probably not treatable by intervention. We would recommend treatment of his atrial fibrillation, outpatient cardiac evaluation per Dr. Fishman, and when the patient is recovered from his COVID and has had his cardiac evaluation, consideration to be given for discussion with the patient as to how aggressive he wants to be and the possible benefits of an intervention for his multilevel carotid disease. Job ID: [id number]
--- NOTE | 2020-03-25 14:17 | MRI ---
MRI brain noncontrast HISTORY: CVA. COVID pneumonia. FINDINGS: The largest area of restricted diffusion is centered at the posterior medial aspect of the right temporal lobe, correlating with recent CT scan, over a length of 4.5 cm by width 2.2 cm. Scattered tiny additional foci of cortical restricted diffusion are present within the medial aspect of the right occipital lobe and the right posterior periventricular white matter. FLAIR signal and subtle T2 signal are associated with the areas of abnormality. Mild expansion consistent with cytotox ic edema. Ventricles are unremarkable. IMPRESSION : Areas of acute infarct involving the deep branches branches and small peripheral branches of the righ t posterior cerebral artery, as detailed above.
[2020-03-25] MEDS ORDERED: Aspirin 325 mg Enteric Coated Tablet PO SCH (15:00)
--- NOTE | 2020-03-25 15:23 | EKG ---
Test Reason : STROKE ALERT Blood Pressure : / mmHG Vent. Rate : 094 BPM Atrial Rate : 096 BPM P-R Int : 000 ms QRS Dur : 064 ms QT Int : 376 ms P-R-T Axes : 000 076 -70 degrees QTc Int : 470 ms Atrial fibrillation T wave abnormality, consider inferolateral ischemia Abnormal ECG Confirmed by QUYNH ROBERTS, RALEIGH ([id number]), communications editor SASHA MORENO ([id number]) on 03/25/2020 3:23:23 PM Referred By: QUYNH Confirmed By:RALEIGH BEAUCHAMP MD
[2020-03-25] MEDS: cefTRIAXone\\ROCEPHIN 1 GM in Sodium Chloride 0.9% 100 ML IVPB SCH (17:13)
--- NOTE | 2020-03-25 20:04 | PRG ---
DATE OF SERVICE: 03/25/2020 I did review the patient's chart. OBJECTIVE: VITAL SIGNS: Blood pressure is 138/72, pulse 62, it is sinus on the monitor. The patient was not examined since he is positive for COVID. Per protocol, we are trying to restrict exams to medically necessary. LABORATORY DATA: His hemoglobin is 12.4, hematocrit 35.5 yesterday. Troponin was drawn yesterday, 1.8. ASSESSMENT: 1. Recent COVID pneumonia. 2. Stroke. 3. Increased troponin levels. PLAN: Continue the current medical regimen. No changes at the present time. ADDENDUM: I just reviewed that the recent rhythm strips from what appears to be this evening. The patient is having some bradycardia. We will reduce beta-jb dose. Job ID: [id number]
[2020-03-25] MEDS: Azithromycin 500 MG in Sodium Chloride 0.9% 250 ML 250 ML IVPB SCH (20:45)
[2020-03-25] MEDS: Atorvastatin Calcium 40 MG TAB PO SCH (20:46)
[2020-03-26] MEDS: Cholecalciferol 1,000 UNITS (25 MCG) TAB PO SCH (08:43)
[2020-03-26] MEDS: Aspirin 325 MG TAB PO SCH (08:43)
[2020-03-26] MEDS: Famotidine 20 MG TAB PO SCH (08:43)
[2020-03-26] MEDS: Zinc Sulfate 220 MG CAP PO SCH (08:43)
[2020-03-26] MEDS: Allopurinol 100 MG TAB PO SCH (08:43)
[2020-03-26] MEDS: Enoxaparin Sodium 100 MG/ML SYRINGE SC SCH (08:43)
[2020-03-26] MEDS: Ascorbic Acid 500 mg Chewable Tablet PO SCH (08:43)
--- NOTE | 2020-03-26 10:13 | PDOC.DS.DS ---
Provider - Provider Date of Admission: 03/23/20 16:34 Date of Discharge: 03/26/20 Admitting Provider: Consuelo Taylor MD Consultations: Cardiology, Neurology Course - Hospital Course Hospital Course: Patient was admitted on March 23, 2020, please see my HPI for more detail, patient came to emergency room for stroke alert, patient was having speech difficulty and left-sided upper and lower extremity weakness, patient was given TPA, post TPA he was admitted to ICU, initial CT brain was negative for any acute intracranial process, CT [place] [facility] [place] angiography showed abrupt termination of right posterior cerebral P1 arterial segment, patient was also found during this admission new onset atrial fibrillation, patient was also found with a Covid pneumonitis, After [address] brain was showing ischemic changes, no hemorrhage, chest x-ray showed infiltration, we repeated another CT scan and subsequently we also repeated MRI brain, patient does have acute infarct in the right posterior cerebral artery territory, Cardiology was consulted for atrial fibrillation though his rate is controlled, we started anticoagulation therapy because of high chads 2 score, we started Toprol-XL to control rate, we started Lipitor Regarding Covid pneumonia we will treated him with him Rocephin and azithromycin and vitamin supplementation given, he was on room air, While in ICU pulmonology evaluated this patient, for his carotid disease we consulted cardiothoracic surgeon, at this point conservative treatment is planned, 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 Resuscitation Status: 03/23/20 15:24 Resuscitation Status Routine Resuscitation Status: FULL: Full Resuscitation - Labs Lab Results: 03/24/20 15:26 03/24/20 15:26 Abnormal Lab Results - Last 48 hrs 03/24/20 15:26: C-Reactive Protein 2.51 H 03/24/20 15:26: Lactate Dehydrogenase 237 H 03/24/20 15:26: Ferritin 713.56 H 03/24/20 15:26: RBC 3.68 L, Hgb 12.4 L, Hct 35.5 L, MCH 33.7 H, Band Neuts % (Manual) 18 H, Lymphocytes % (Manual) 12 L 03/24/20 15:26: PT 16.2 H, D-Dimer Greater than 20.00 H 03/24/20 15:27: Troponin I 1.904 H* 03/24/20 17:57: Troponin I 1.836 H* - Physical Exam Vitals: Vital Signs (12 hours) Temp Pulse Resp BP Pulse Ox 03/26/20 07:52 97.6 F 75 16 143/83 H 96 03/26/20 04:28 97 03/26/20 04:00 98.6 F 71 18 152/71 H 96 03/26/20 00:00 98.4 F 69 20 130/76 97 Weight Weight 235 lb Most Recent Monitor Data Heart Rate from ECG 72 NIBP 120/58 NIBP BP-Mean 78 Respiration from ECG 21 SpO2 97 Physical Exam: The patient was seen and examined on the day of discharge. General patient is currently alert and awake no acute distress Head normocephalic atraumatic Neck supple no JVD no meningeal signs of irritation Lungs clear to auscultation Cardiac S1-S2 regular no murmur no gallop no rub Abdomen soft, bowel sounds present, nontender nondistended no organomegaly no mass Extremity right BKA noted, Neurologic nonfocal examination Problem - Problem (1) Acute ischemic cerebrovascular accident (CVA) involving posterior cerebral artery territory Code(s): I63.539 - CEREB INFRC D/T UNSP OCCLS OR STENOS OF UNSP POST CEREB ART Status: Acute (2) Atrial fibrillation Code(s): I48.91 - UNSPECIFIED ATRIAL FIBRILLATION Status: Acute Qualifiers: Atrial fibrillation type: paroxysmal Qualified Code(s): I48.0 - Paroxysmal atrial fibrillation (3) NSTEMI (non-ST elevated myocardial infarction) Code(s): I21.4 - NON-ST ELEVATION (NSTEMI) MYOCARDIAL INFARCTION Status: Acute (4) Pneumonia due to 2019 novel coronavirus Code(s): U07.1 - COVID-19; J12.89 - OTHER VIRAL PNEUMONIA Status: Acute (5) Gout Code(s): M10.9 - GOUT, UNSPECIFIED Status: Chronic (6) Hypertension Code(s): I10 - ESSENTIAL (PRIMARY) HYPERTENSION Status: Chronic (7) Dyslipidemia Code(s): E78.5 - HYPERLIPIDEMIA, UNSPECIFIED Status: Chronic (8) Carotid stenosis Code(s): I65.29 - OCCLUSION AND STENOSIS OF UNSPECIFIED CAROTID ARTERY Status: Chronic Qualifiers: Laterality: bilateral Qualified Code(s): I65.23 - Occlusion and stenosis of bilateral carotid arteries Plan - Discharge Medications Prescriptions: Cefdinir [Omnicef] 300 mg PO Q12HR #10 cap Aspirin 325 mg PO DAILY #30 tab Atorvastatin Calcium [Lipitor] 40 mg PO HS #30 tab Metoprolol Succinate [Toprol XL] 25 mg PO DAILY #30 tab Ascorbic Acid [Vitamin C] 1,000 mg PO DAILY #14 tab Cholecalciferol [Vitamin D3] 1,000 units PO DAILY #30 tab Zinc Sulfate 220 mg PO DAILY #14 cap Home Medications: Medication Instructions Recorded Confirmed Type Allopurinol 100 mg PO BID 03/23/20 03/23/20 History Ascorbic Acid [Vitamin C] 1,000 mg PO DAILY #14 tab 03/26/20 Rx Aspirin 325 mg PO DAILY #30 tab 03/26/20 Rx Atorvastatin Calcium [Lipitor] 40 mg PO HS #30 tab 03/26/20 Rx Cefdinir [Omnicef] 300 mg PO Q12HR #10 cap 03/26/20 Rx Cholecalciferol [Vitamin D3] 1,000 units PO DAILY #30 tab 03/26/20 Rx Metoprolol Succinate [Toprol XL] 25 mg PO DAILY #30 tab 03/26/20 Rx Zinc Sulfate 220 mg PO DAILY #14 cap 03/26/20 Rx Allergies: No Known Allergies Allergy (Verified 03/23/20 18:40) - Discharge Instructions Activity:: Activity as Tolerated Nourishment:: Heart Healthy Diet Therapies:: Not Applicable Equipment/Supplies:: Not Applicable IV Therapy:: Not Applicable - Follow up Plan Disposition: HOME Quality - Care Measures CORE MEASURES:: Stroke/TIA - Stroke/TIA Did you prescribe antithrombotic therapy?: Yes Did you prescribe anticoagulant for A Fib/Flutter?: Yes Did you prescribe a statin medication?: Yes
[2020-03-26 11:47] VITALS: BP 137/67; TEMP 99.6
--- NOTE | 2020-03-29 10:37 | CT ---
CT angiogram neck with IV contrast and 3-D imaging CT angiogram head with IV contrast and 3-D imaging HISTORY: Left-sided weakness. Left-sided vision loss. FINDINGS: Good contrast opacification of the thoracic aortic arch with normal branching great vessels . Calcification of the arterial structures. Nonspecific mediastinal lymph nodes partially visualized, measuring up to 1.5 cm greatest diameter at the prevascular space. Ill-defined patchy areas of groundglass infiltrate involve the upper lobes, left greater than right. Consistent with reported clinical history of COVID pneumonitis. Calcified granulomata at the lung apices consistent with healed granulomas disease. Dense calcification resulting in stenoses at the origin of the left common carotid artery and the rig ht subclavian artery just beyond the origin of the right carotid artery. At each carotid bifurcation, there is dense calcification with narrowing estimated at 90% of the left internal and external carotid artery origins and the right internal carotid artery origin. The right ECA is relatively preserved. Absence of the proximal portion of the right vertebral artery to the level of C4 may be related to ch ronic occlusion with distal reconstitution or congenital hypoplasia. The left vertebral artery is widely patent. Prominent calcification at each carotid siphon intracranially. Approximately 0.6 cm beyond the origin of the right posterior cerebral artery, there is abrupt termin ation. A right posterior communicating artery is partially visualized, but does not appear to supply adequate flow for good opacification of the remainder of the right posterior cerebral artery. There is subtle decreased density at the medial aspect of the right occipital lobe. Anterior and middle cerebral arteries are well-opacified. No enhancing brain lesions. IMPRESSION : Abrupt termination of the right posterior cerebral P1 arterial segment, with subtle diminished perfus ion of the medial aspect of the right occipital lobe, suggesting acute thrombotic/embolic event. Prominent atherosclerosis with stenoses involving each internal carotid artery origin, the left exter nal carotid artery origin, the right subclavian artery, and the left common carotid or origin. Patchy upper lobe lung infiltrates, consistent with COVID pneumonitis. Findings were called to Dr. Bain emergency department at 1435 hours. Code CR. Transcribed Date/Time: 03/29/2020 10:36 AM
== END 2020-03-26 14:50 | disposition home or self-care (01) | DRG 61 ==
LOC: ERS 13:59 → CCU 16:34 → 2SE 03-24 19:51
PROVIDERS: ADMIT Internal Medicine; ATTEND Internal Medicine
PROC: 3E03317 Introduction of Other Thrombolytic into Peripheral Vein, Percutaneous Approach (ICD-10-PCS; principal; 2020-03-23)
PROC: 8E0ZXY6 Isolation (ICD-10-PCS; 2020-03-23)
DX: I63.531 Cerebral infarction due to unspecified occlusion or stenosis of right posterior cerebral artery (principal); U07.1 COVID-19; J12.82 Pneumonia due to coronavirus disease 2019; I21.4 Non-ST elevation (NSTEMI) myocardial infarction; G81.94 Hemiplegia, unspecified affecting left nondominant side; R29.705 NIHSS score 5; I48.0 Paroxysmal atrial fibrillation; M10.9 Gout, unspecified; E78.5 Hyperlipidemia, unspecified; I65.23 Occlusion and stenosis of bilateral carotid arteries; Z89.511 Acquired absence of right leg below knee; Z90.49 Acquired absence of other specified parts of digestive tract; Z87.891 Personal history of nicotine dependence; Z79.899 Other long term (current) drug therapy; Z79.82 Long term (current) use of aspirin
CPT/HCPCS: 36415; 70450; 70496; 70498; 70551; 71045; 80053; 80061; 81001; 82550; 82553; 82728; 83090; 83615; 84484; 85025; 85379; 85610; 85730; 86140; 87635; 93005; 96365; 96374; J0456; J0696; J1650; J2997; J3010; J3490; J7050; Q9967; U0003

== ENCOUNTER 2020-05-19 11:13 | Outpatient (CLI) | payer MEDICARE ==
[2020-05-19 17:58] LABS: Hemoglobin 12.6 g/dL (13.5-17.5); Mean Corpuscular HGB CONC 32.8 g/dL (32.0-36.0); Mean Corpuscular Volume 94.6 fl (81.2-95.1); Mean Platelet Volume 12.6 fl (7.4-10.4); Platelet Count 195 10x3/uL (150-450); RBC Distribution Width 13.6 % (11.5-14.5); Red Blood Cell (RBC) Count 4.06 10x6/uL (4.32-5.72); White Blood Cell (WBC) Count 6.1 10x3/uL (3.5-10.5)
[2020-05-19 18:09] LABS: Anion Gap 14 mmol/L (10-20); BUN (Urea Nitrogen) 17 mg/dL (8.4-25.7); Calc. Creatinine Clearance 0 mL/min (70-130); Calcium 8.8 mg/dL (7.8-10.44); Carbon Dioxide 23 mmol/L (23-31); Chloride 109 mmol/L (98-107); Glucose 103 mg/dL (83-110); Potassium 4.3 mmol/L (3.5-5.1); Sodium 142 mmol/L (136-145)
== END 2020-05-19 11:14 | disposition home or self-care (01) ==
LOC: LABBT 11:13
PROVIDERS: ATTEND Thoracic Surgery (Cardiothoracic Vascular Surgery)
DX: Z01.812 Encounter for preprocedural laboratory examination (principal); I65.29 Occlusion and stenosis of unspecified carotid artery
CPT/HCPCS: 80048; 85027

== ENCOUNTER 2020-05-19 15:15 | Inpatient (IN) | payer MEDICARE ==
[2020-05-23 09:49] VITALS: BMI 34.9
[2020-05-24] MEDS ORDERED: Protamine Sulfate 50 MG/5 ML VIAL ONE (06:29)
[2020-05-24] MEDS ORDERED: Heparin 5,000 UNITS/ML VIAL ONE (06:29)
[2020-05-24] MEDS ORDERED: Fentanyl 100 MCG/2 ML VIAL ONE (06:50)
[2020-05-24] MEDS ORDERED: Midazolam HCl 2 mg/2 ml Vial ONE (06:50)
== END 2020-05-24 07:20 | disposition home or self-care (01) | DRG 68 ==
LOC: SURG A 05-24 05:38 → EDSTATUS 05-24 15:15
PROVIDERS: ADMIT Thoracic Surgery (Cardiothoracic Vascular Surgery); ATTEND Thoracic Surgery (Cardiothoracic Vascular Surgery)
DX: I65.21 Occlusion and stenosis of right carotid artery (principal); Z53.09 Procedure and treatment not carried out because of other contraindication
CPT/HCPCS: J0690; J1642; J1644; J2250; J2720; J3010

== ENCOUNTER 2020-05-25 05:44 | Inpatient (IN) | payer MEDICARE ==
[2020-05-25] MEDS ORDERED: Heparin 5,000 UNITS/ML VIAL ONE (06:32)
[2020-05-25] MEDS ORDERED: Protamine Sulfate 50 MG/5 ML VIAL ONE (06:32)
[2020-05-25] MEDS ORDERED: Fentanyl 100 MCG/2 ML VIAL ONE (07:09)
[2020-05-25] MEDS ORDERED: Midazolam HCl 2 mg/2 ml Vial ONE (07:09)
[2020-05-25] MEDS ORDERED: Famotidine/PF 20 mg/2ml Vial ONE (07:09)
[2020-05-25] MEDS ORDERED: Nitroglycerin 50 MG/250 ML BOT 0 ML ONE (07:31)
[2020-05-25] MEDS ORDERED: Phenylephrine 10 MG/ML VIAL ONE (07:31)
[2020-05-25] MEDS ORDERED: SUGAMMADEX SODIUM 200 MG/2 ML VIAL ONE (07:36)
[2020-05-25] MEDS ORDERED: Promethazine HCl 25 MG/ML VIAL SLOW IVP PRN (08:34)
[2020-05-25] MEDS ORDERED: Promethazine HCl 25 MG/ML VIAL IM PRN (08:34)
[2020-05-25] MEDS ORDERED: PACU-Morphine 4MG/ML VIAL SLOW IVP PRN (08:34)
[2020-05-25] MEDS ORDERED: EPINEPHrine 1 MG/ML AMP ONE (08:58)
[2020-05-25] MEDS ORDERED: Bupivacaine PF 0.5% 30 ML VIAL ONE (08:58)
[2020-05-25] MEDS ORDERED: Metoprolol Tartrate 5 MG/5 ML VIAL ONE (10:18)
[2020-05-25] MEDS ORDERED: PHENYLEPHRINE-NS 100 MCG/ML 10 ML SYRINGE ONE (10:18)
[2020-05-25] MEDS ORDERED: Lidocaine 1% PF 5 ML VIAL ONE (10:18)
[2020-05-25] MEDS ORDERED: Ondansetron PF 4 MG/2 ML Vial ONE (10:18)
[2020-05-25] MEDS ORDERED: Rocuronium Bromide 10 MG/ML (10ML VIAL) ONE (10:18)
[2020-05-25] MEDS ORDERED: PROPOFOL 200 MG/20 ML VIAL ONE (10:18)
[2020-05-25] MEDS ORDERED: Norepinephrine 8 MG/0.9% NS 250 ML IVPB PRN (11:06)
[2020-05-25] MEDS ORDERED: Nitroglycerin 50 MG/250 ML BOT 250 ML IVPB PRN (11:06)
[2020-05-25] MEDS ORDERED: Acetaminophen 325 MG TAB PO PRN (11:06)
[2020-05-25] MEDS ORDERED: Sodium Chloride 0.9% 1,000 ML IV SCH (11:06)
[2020-05-25] MEDS ORDERED: Fentanyl 100 MCG/2 ML VIAL SLOW IVP PRN ×2 (11:06)
[2020-05-25] MEDS ORDERED: HYDROcodone/Acetaminophen 5/325 mg Tablet PO PRN ×2 (11:06)
[2020-05-25] MEDS ORDERED: Ondansetron PF 4 MG/2 ML Vial IVP PRN (11:06)
[2020-05-25 13:38] VITALS: BP 130/49; BMI 34.0
[2020-05-25] MEDS: CEFAZOLIN 2 GM in Premix Bag 1 BAG IVPB SCH (17:47)
[2020-05-25] MEDS: Allopurinol 100 MG TAB PO SCH (20:58)
[2020-05-25] MEDS ORDERED: Atorvastatin Calcium 40 MG TAB PO SCH (21:00)
[2020-05-26] MEDS: CEFAZOLIN 2 GM in Premix Bag 1 BAG IVPB SCH ×2 (00:14→08:17)
[2020-05-26] MEDS: Allopurinol 100 MG TAB PO SCH (08:15)
[2020-05-26] MEDS ORDERED: Aspirin Chewable 81 MG TAB PO SCH (09:00)
[2020-05-26] MEDS ORDERED: FLU VACC QS2020-21(65YR UP)/PF 240 MCG/0.7 ML SYRINGE IM ONE (09:00)
[2020-05-26 09:30] VITALS: TEMP 98.2
== END 2020-05-26 09:48 | disposition home or self-care (01) | DRG 39 ==
LOC: SURG A 05:44 → CCU 12:34
PROVIDERS: ADMIT Thoracic Surgery (Cardiothoracic Vascular Surgery); ATTEND Thoracic Surgery (Cardiothoracic Vascular Surgery)
PROC: 03CH0ZZ Extirpation of Matter from Right Common Carotid Artery, Open Approach (ICD-10-PCS; principal; 2020-05-25)
PROC: 03UH0KZ Supplement Right Common Carotid Artery with Nonautologous Tissue Substitute, Open Approach (ICD-10-PCS; 2020-05-25)
PROC: 03UK0KZ Supplement Right Internal Carotid Artery with Nonautologous Tissue Substitute, Open Approach (ICD-10-PCS; 2020-05-25)
PROC: 03CM0ZZ Extirpation of Matter from Right External Carotid Artery, Open Approach (ICD-10-PCS; 2020-05-25)
DX: I65.21 Occlusion and stenosis of right carotid artery (principal); I25.10 Atherosclerotic heart disease of native coronary artery without angina pectoris; Z79.899 Other long term (current) drug therapy; Z79.82 Long term (current) use of aspirin; Z79.01 Long term (current) use of anticoagulants; Z90.49 Acquired absence of other specified parts of digestive tract; Z86.73 Personal history of transient ischemic attack (TIA), and cerebral infarction without residual deficits; Z87.891 Personal history of nicotine dependence; I48.0 Paroxysmal atrial fibrillation
CPT/HCPCS: 94640; J0171; J0690; J1642; J1644; J2250; J2370; J2405; J2704; J2720; J3010; J7620; S0020; S0028

== ENCOUNTER 2020-07-10 13:32 | Outpatient (CLI) | payer MEDICARE ==
[2020-07-10 15:39] LABS: Anion Gap 14 mmol/L (10-20); BUN (Urea Nitrogen) 20 mg/dL (8.4-25.7); Calc. Creatinine Clearance 0 mL/min (70-130); Carbon Dioxide 25 mmol/L (23-31); Chloride 105 mmol/L (98-107); Glucose 83 mg/dL (83-110); Potassium 4.7 mmol/L (3.5-5.1); Sodium 139 mmol/L (136-145)
[2020-07-10 16:59] LABS: Hemoglobin 12.7 g/dL (13.5-17.5); Mean Corpuscular HGB CONC 32.6 g/dL (32.0-36.0); Mean Corpuscular Hemoglobin 30.9 pg (27.0-33.0); Mean Corpuscular Volume 94.9 fl (81.2-95.1); Mean Platelet Volume 12.5 fl (7.4-10.4); Platelet Count 197 10x3/uL (150-450); Red Blood Cell (RBC) Count 4.11 10x6/uL (4.32-5.72); White Blood Cell (WBC) Count 6.7 10x3/uL (3.5-10.5)
[2020-07-11 06:59] LABS: SARS-CoV-2 PCR by NAA Not Detected (NotDetected)
== END 2020-07-10 13:33 | disposition home or self-care (01) ==
LOC: LABBT 13:32
PROVIDERS: ATTEND Thoracic Surgery (Cardiothoracic Vascular Surgery)
DX: Z01.812 Encounter for preprocedural laboratory examination (principal); Z20.822 Contact with and (suspected) exposure to COVID-19; I65.22 Occlusion and stenosis of left carotid artery
CPT/HCPCS: 80048; 85027; U0003; U0005; 87635

== ENCOUNTER 2020-07-10 14:00 | Inpatient (IN) | payer MEDICARE ==
[2020-07-13] MEDS ORDERED: Midazolam HCl 2 mg/2 ml Vial ONE (06:23)
[2020-07-13] MEDS ORDERED: Fentanyl 100 MCG/2 ML VIAL ONE (06:23)
[2020-07-13] MEDS ORDERED: Heparin 5,000 UNITS/ML VIAL ONE (06:30)
[2020-07-13] MEDS ORDERED: Protamine Sulfate 50 MG/5 ML VIAL ONE (06:30)
[2020-07-13] MEDS ORDERED: Rocuronium Bromide 10 MG/ML (10ML VIAL) ONE (07:31)
[2020-07-13] MEDS ORDERED: Dexamethasone 20 MG/5 ML VIAL ONE (07:31)
[2020-07-13] MEDS ORDERED: Ondansetron PF 4 MG/2 ML Vial ONE (07:31)
[2020-07-13] MEDS ORDERED: PROPOFOL 200 MG/20 ML VIAL ONE (07:31)
[2020-07-13] MEDS ORDERED: Glycopyrrolate 0.2 MG/ML 5 ML SYRINGE ONE (07:31)
[2020-07-13] MEDS ORDERED: Promethazine HCl 25 MG/ML VIAL IM PRN (10:47)
[2020-07-13] MEDS ORDERED: HYDROcodone/Acetaminophen 5/325 mg Tablet PO PRN ×2 (10:47)
[2020-07-13] MEDS ORDERED: Fentanyl 100 MCG/2 ML VIAL SLOW IVP PRN (10:47)
[2020-07-13] MEDS ORDERED: Ondansetron PF 4 MG/2 ML Vial IVP PRN (10:47)
[2020-07-13] MEDS ORDERED: Phenylephrine 40 MG in Sodium Chloride 0.9% 250 ML 250 ML IVPB PRN (10:47)
[2020-07-13] MEDS ORDERED: Acetaminophen 325 MG TAB PO PRN (10:47)
[2020-07-13] MEDS ORDERED: niCARdipine 25 MG in Sodium Chloride 0.9% 250 ML 250 ML IVPB PRN (10:47)
[2020-07-13] MEDS: CEFAZOLIN 2 GM in Premix Bag 1 BAG IVPB SCH (17:35)
[2020-07-13] MEDS: Sodium Chloride 0.9% 1,000 ML IV SCH ×2 (17:37→21:31)
[2020-07-13] MEDS: Atorvastatin Calcium 40 MG TAB PO SCH (21:29)
[2020-07-14] MEDS: CEFAZOLIN 2 GM in Premix Bag 1 BAG IVPB SCH ×2 (00:50→09:38)
[2020-07-14] MEDS: Sodium Chloride 0.9% 1,000 ML IV SCH ×2 (10:44→16:32)
[2020-07-14] MEDS ORDERED: Iopamidol 370 76% 50 ML VIAL FS ONE (11:57)
[2020-07-14 13:28] VITALS: BMI 31.9
[2020-07-14] MEDS ORDERED: CEFAZOLIN 1 GM VIAL ONE (14:51)
[2020-07-14] MEDS ORDERED: Gentamicin 80 MG/2 ML VIAL ONE (14:51)
[2020-07-14] MEDS ORDERED: Lidocaine 1% (PF) 30 ML VIAL ONE (15:30)
[2020-07-14] MEDS ORDERED: Acetaminophen/Codeine 30-300mg Tablet PO PRN (16:31)
[2020-07-14] MEDS: Atorvastatin Calcium 40 MG TAB PO SCH (20:22)
[2020-07-15 09:30] VITALS: BP 120/59; TEMP 97.7
== END 2020-07-15 11:35 | disposition home or self-care (01) | DRG 39 ==
LOC: SURG A 07-13 05:32 → CCU 07-13 14:51 → 2NO 07-14 16:42
PROVIDERS: ADMIT Thoracic Surgery (Cardiothoracic Vascular Surgery); ATTEND Thoracic Surgery (Cardiothoracic Vascular Surgery)
PROC: 03CL0ZZ Extirpation of Matter from Left Internal Carotid Artery, Open Approach (ICD-10-PCS; principal; 2020-07-13)
PROC: 03UL0KZ Supplement Left Internal Carotid Artery with Nonautologous Tissue Substitute, Open Approach (ICD-10-PCS; 2020-07-13)
PROC: 0JH606Z Insertion of Pacemaker, Dual Chamber into Chest Subcutaneous Tissue and Fascia, Open Approach (ICD-10-PCS; 2020-07-14)
PROC: 02H63JZ Insertion of Pacemaker Lead into Right Atrium, Percutaneous Approach (ICD-10-PCS; 2020-07-14)
PROC: 02HK3JZ Insertion of Pacemaker Lead into Right Ventricle, Percutaneous Approach (ICD-10-PCS; 2020-07-14)
DX: I65.22 Occlusion and stenosis of left carotid artery (principal); Z20.822 Contact with and (suspected) exposure to COVID-19; I48.0 Paroxysmal atrial fibrillation; E78.5 Hyperlipidemia, unspecified; M10.9 Gout, unspecified; I25.10 Atherosclerotic heart disease of native coronary artery without angina pectoris; I49.5 Sick sinus syndrome; I69.392 Facial weakness following cerebral infarction; Z87.891 Personal history of nicotine dependence; Z89.511 Acquired absence of right leg below knee; Z79.82 Long term (current) use of aspirin; Z79.01 Long term (current) use of anticoagulants; Z79.899 Other long term (current) drug therapy
CPT/HCPCS: 33208; 36005; 71045; 75820; 93005; 93010; 97139; C1785; C1898; J0690; J1100; J1580; J1642; J1644; J2001; J2250; J2405; J2704; J2720; J3010; Q9967

== ENCOUNTER 2020-08-14 16:00 | Inpatient (IN) | payer MEDICARE ==
[2020-08-14 17:58] LABS: Hemoglobin 13.1 g/dL (13.5-17.5); Mean Corpuscular HGB CONC 32.9 g/dL (32.0-36.0); Mean Corpuscular Hemoglobin 30.2 pg (27.0-33.0); Mean Corpuscular Volume 91.7 fl (81.2-95.1); Mean Platelet Volume 11.4 fl (7.4-10.4); Platelet Count 180 10x3/uL (150-450); Red Blood Cell (RBC) Count 4.34 10x6/uL (4.32-5.72); White Blood Cell (WBC) Count 7.1 10x3/uL (3.5-10.5)
[2020-08-14 18:10] LABS: Anion Gap 14 mmol/L (10-20); BUN (Urea Nitrogen) 14 mg/dL (8.4-25.7); Calc. Creatinine Clearance 0 mL/min (70-130); Calcium 9.1 mg/dL (7.8-10.44); Carbon Dioxide 22 mmol/L (23-31); Chloride 108 mmol/L (98-107); Glucose 95 mg/dL (83-110); Potassium 4.4 mmol/L (3.5-5.1); Sodium 140 mmol/L (136-145)
[2020-08-15 00:48] LABS: SARS-CoV-2 PCR by NAA Not Detected (NotDetected)
[2020-08-18] MEDS ORDERED: Albumin 5% 500 ML ONE (06:30)
[2020-08-18] MEDS ORDERED: Fentanyl 250 MCG/5 ML VIAL ONE (06:33)
[2020-08-18] MEDS ORDERED: Midazolam HCl 2 mg/2 ml Vial ONE (06:33)
[2020-08-18] MEDS ORDERED: Phenylephrine 10 MG/ML VIAL ONE (06:33)
[2020-08-18] MEDS ORDERED: Dexmedetomidine 200 MCG/2 ML VIAL ONE (06:33)
[2020-08-18] MEDS ORDERED: Heparin 10,000 UNITS/1 ML VIAL 30,000 UNITS in Sodium Chloride 0.9% 1,000 ML FS SCH (07:00)
[2020-08-18] MEDS ORDERED: Nitroglycerin 50 MG/250 ML BOT ONE (07:32)
[2020-08-18] MEDS ORDERED: Protamine Sulfate 250 MG/25 ML VIAL ONE (07:32)
[2020-08-18] MEDS ORDERED: Potassium Chloride 60 MEQ/30 ML VIAL ONE (07:32)
[2020-08-18] MEDS ORDERED: Cardioplegic Soln 1,000 ML BAG ONE (07:32)
[2020-08-18] MEDS ORDERED: Thrombin 5000 UNITS/5 ML VIAL ONE (07:32)
[2020-08-18] MEDS ORDERED: Papaverine 60 MG/2 ML VIAL ONE (07:32)
[2020-08-18] MEDS ORDERED: PHENYLEPHRINE-NS 100 MCG/ML 10 ML SYRINGE ONE ×2 (07:32→09:02)
[2020-08-18] MEDS ORDERED: Rocuronium Bromide 10 MG/ML (10ML VIAL) ONE (07:32)
[2020-08-18] MEDS ORDERED: Ondansetron PF 4 MG/2 ML Vial ONE (07:32)
[2020-08-18] MEDS ORDERED: Calcium Chloride 1 GM/10 ML Abboject SYRINGE ONE (07:32)
[2020-08-18] MEDS ORDERED: Magnesium Sulfate 1 GM/2 ML VIAL ONE (07:32)
[2020-08-18] MEDS ORDERED: Lidocaine 2% PF 100 mg/5 ml Syringe ONE (07:32)
[2020-08-18] MEDS ORDERED: Mannitol 12.5 GM/50 ML ONE (07:32)
[2020-08-18] MEDS ORDERED: Dexamethasone 20 MG/5 ML VIAL ONE (07:32)
[2020-08-18] MEDS ORDERED: ePHEDrine Sulfate 50 MG/10 ML VIAL ONE (07:32)
[2020-08-18] MEDS ORDERED: Sodium Bicarb 50 MEQ/50 ML Abboject 8.4% SYRINGE ONE (07:32)
[2020-08-18] MEDS ORDERED: Heparin 30,000 units/30 ml VIAL ONE (07:32)
[2020-08-18] MEDS ORDERED: PROPOFOL 200 MG/20 ML VIAL ONE (07:32)
[2020-08-18] MEDS ORDERED: Heparin 5,000 UNITS/ML VIAL ONE (07:32)
[2020-08-18] MEDS ORDERED: Ketorolac Tromethamine 30 MG/ML VIAL ONE (07:32)
[2020-08-18] MEDS ORDERED: Aminocaproic Acid 5 GM/20 ML VIAL ONE (07:32)
[2020-08-18] MEDS ORDERED: Lidocaine 1% PF 5 ML VIAL ONE (07:32)
[2020-08-18] MEDS ORDERED: Insulin Regular 300 UNITS/3 ML VIAL ONE (09:48)
[2020-08-18] MEDS ORDERED: Nitroglycerin 50 MG/250 ML BOT 250 ML IVPB PRN (11:19)
[2020-08-18] MEDS ORDERED: Acetaminophen 325 MG TAB PO PRN (11:19)
[2020-08-18] MEDS ORDERED: Post-Op Insulin Drip Protocol IVPB ONE (11:19)
[2020-08-18] MEDS ORDERED: Bisacodyl 5 MG TAB PO PRN (11:19)
[2020-08-18] MEDS ORDERED: Hetastarch 6% 500 ML 500 ML IVPB PRN (11:19)
[2020-08-18] MEDS ORDERED: HYDROcodone/Acetaminophen 5/325 mg Tablet PO PRN (11:19)
[2020-08-18] MEDS ORDERED: Morphine 2 MG/ML VIAL SLOW IVP PRN (11:19)
[2020-08-18] MEDS ORDERED: Norepinephrine 8 MG/0.9% NS 250 ML IVPB PRN (11:19)
[2020-08-18] MEDS ORDERED: niCARdipine 25 MG in Sodium Chloride 0.9% 250 ML 250 ML IVPB PRN (11:19)
[2020-08-18] MEDS ORDERED: Ondansetron PF 4 MG/2 ML Vial IVP PRN (11:19)
[2020-08-18] MEDS ORDERED: Guaifenesin DM 100-10/5 ML UDCUP PO PRN (11:19)
[2020-08-18] MEDS ORDERED: Mag-Al 1200 mg/1200 mg/30 ML UDCUP PO PRN (11:19)
[2020-08-18] MEDS ORDERED: hydrALAZINE 20 MG/ML VIAL SLOW IVP PRN (11:19)
[2020-08-18] MEDS ORDERED: Potassium Chloride 20 MEQ/100 ML PREMIX BAG IVPB PRN (11:19)
[2020-08-18] MEDS ORDERED: DOPamine 400 MG/D5W 250 ML 250 ML IVPB PRN (11:19)
[2020-08-18] MEDS ORDERED: Promethazine HCl 25 MG/ML VIAL IM PRN (11:19)
[2020-08-18] MEDS ORDERED: Bisacodyl 10 MG SUPP PR PRN (11:19)
[2020-08-18] MEDS ORDERED: Magnesium 2 GM/50 ML 2 GM in Premix Bag 1 BAG IVPB SCH (11:19)
[2020-08-18] MEDS ORDERED: Fentanyl 100 MCG/2 ML VIAL SLOW IVP PRN ×2 (11:19)
[2020-08-18] MEDS: Lactated Ringer's 1,000 ML IV SCH ×2 (11:20→23:28)
[2020-08-18] MEDS ORDERED: Fentanyl 100 MCG/2 ML VIAL ONE (11:24)
[2020-08-18 11:34] LABS: Actual Bicarbonate (HCO3a) 23.1 mEq/L (22-28); Base Excess (BEa) -1.9 mEq/L (-2.0 to +3.0); CO2 Tension 40.2 mmHg (35.0-45.0); Calcium, Ionized (arterial) 1.18 mmol/L (1.12-1.30); Carboxyhemoglobin (COHb) 0.2 gm% (0.0-3.0); Hemoglobin (Hb) 11.9 g/dL (14.0-18.0); O2 Tension (PaO2), arterial 157.6 mmHg (> 70.0); Potassium - ABG Lab 4.47 mmol/L (3.70-5.30); Puncture Site Arterial Line; pH, Arterial 7.38 (7.35-7.45)
[2020-08-18 11:34] LABS: Hemoglobin 11.7 g/dL (14.0-18.0); Mean Corpuscular HGB CONC 33.4 g/dL (32.0-36.0); Mean Corpuscular Hemoglobin 31.5 pg (27.0-31.0); Mean Corpuscular Volume 94.4 fL (78.0-98.0); RBC Distribution Width 13.2 % (11.5-14.5); Red Blood Cell (RBC) Count 3.71 mill/uL (4.70-6.10); White Blood Cell (WBC) Count 17.9 thou/uL (4.8-10.8)
[2020-08-18 11:46] LABS: INR-International Normal Ratio 1.3; PTT 28.5 sec (22.9-36.1); Prothrombin Time 16.3 sec (12.0-14.7)
[2020-08-18 11:48] LABS: #Basophils 0.1 thou/uL (0.0-0.2); #Eosinphils 0.1 thou/uL (0.0-0.7); #Lymphocytes 1.3 thou/uL (1.20-3.40); #Monocytes 0.8 thou/uL (0.11-0.59); #Neutrophils 15.7 thou/uL (1.40-6.50); %Basophils 0.3 % (0.0-1.0); %Eosinophils 0.6 % (0.0-10.0); %Lymphocytes 7.2 % (21.0-51.0); %Monocytes 4.6 % (0.0-10.0); %Neutrophils 87.3 % (42.0-75.0); Mean Platelet Volume 8.7 fL (7.4-10.4); Platelet Count 107 thou/uL (130-400); Platelet Morphology Comment Appears Decreased; RBC Morphology Normal
[2020-08-18 11:54] LABS: Anion Gap 10 mmol/L (10-20); BUN (Urea Nitrogen) 17 mg/dL (8.4-25.7); Calc. Creatinine Clearance 119 mL/min (70-130); Carbon Dioxide 21 mmol/L (23-31); Chloride 114 mmol/L (98-107); Glucose 157 mg/dL (83-110); Potassium 4.7 mmol/L (3.5-5.1); Sodium 140 mmol/L (136-145)
[2020-08-18] MEDS ORDERED: HUMULIN R 100 UNITS in Sodium Chloride 0.9% 100 ML IVPB SCH (12:15)
[2020-08-18] MEDS ORDERED: Dextrose 5% in Water 1,000 ML IV PRN (12:15)
[2020-08-18] MEDS ORDERED: Dextrose 50% Abboject 50 ML SYRINGE SLOW IVP PRN (12:15)
[2020-08-18] MEDS ORDERED: Lantus 1000 UNITS/10 ML VIAL SC PRN (12:15)
[2020-08-18] MEDS: Insulin Regular 300 UNITS/3 ML VIAL SC PRN ×2 (12:27→23:28)
[2020-08-18 14:28] LABS: Actual Bicarbonate (HCO3a) 17.4 mEq/L (22-28); Calcium, Ionized (arterial) 1.14 mmol/L (1.12-1.30); Carboxyhemoglobin (COHb) 0.1 gm% (0.0-3.0); Hemoglobin (Hb) 12.1 g/dL (14.0-18.0); O2 Tension (PaO2), arterial 183.8 mmHg (> 70.0)
[2020-08-18 14:30] LABS: ALV-art Gradient 76.025 mmHg (0-20); CO2 Tension 20.3 mmHg (35.0-45.0); Puncture Site Arterial Line; pH, Arterial 7.55 (7.35-7.45)
[2020-08-18] MEDS: CEFAZOLIN 2 GM in Premix Bag 1 BAG IVPB SCH ×2 (14:42→21:16)
[2020-08-18 16:54] LABS: Hemoglobin 11.7 g/dL (14.0-18.0)
[2020-08-18 17:09] LABS: Potassium 4.6 mmol/L (3.5-5.1)
[2020-08-18] MEDS ORDERED: Atorvastatin Calcium 20 MG TAB PO SCH (21:00)
[2020-08-18] MEDS: Famotidine/PF 20 mg/2ml Vial SLOW IVP SCH (21:15)
[2020-08-19] MEDS: Insulin Regular 300 UNITS/3 ML VIAL SC PRN (04:17)
[2020-08-19 04:55] LABS: #Lymphocytes 1.3 thou/uL (1.20-3.40); #Monocytes 1.1 thou/uL (0.11-0.59); #Neutrophils 10.7 thou/uL (1.40-6.50); %Eosinophils 0.1 % (0.0-10.0); %Lymphocytes 9.9 % (21.0-51.0); %Monocytes 8.6 % (0.0-10.0); %Neutrophils 81.4 % (42.0-75.0); Hemoglobin 10.5 g/dL (14.0-18.0); Mean Corpuscular HGB CONC 33.4 g/dL (32.0-36.0); Mean Corpuscular Hemoglobin 32.3 pg (27.0-31.0); Mean Corpuscular Volume 96.8 fL (78.0-98.0); Mean Platelet Volume 9.3 fL (7.4-10.4); Platelet Count 132 thou/uL (130-400); RBC Distribution Width 13.4 % (11.5-14.5); Red Blood Cell (RBC) Count 3.26 mill/uL (4.70-6.10); White Blood Cell (WBC) Count 13.2 thou/uL (4.8-10.8)
[2020-08-19 05:16] LABS: Anion Gap 11 mmol/L (10-20); BUN (Urea Nitrogen) 21 mg/dL (8.4-25.7); Calc. Creatinine Clearance 111 mL/min (70-130); Calcium 8.1 mg/dL (7.8-10.44); Carbon Dioxide 23 mmol/L (23-31); Chloride 107 mmol/L (98-107); Glucose 141 mg/dL (83-110); Potassium 4.5 mmol/L (3.5-5.1); Sodium 136 mmol/L (136-145)
[2020-08-19] MEDS: CEFAZOLIN 2 GM in Premix Bag 1 BAG IVPB SCH (05:16)
[2020-08-19] MEDS: Famotidine/PF 20 mg/2ml Vial SLOW IVP SCH (08:37)
[2020-08-19] MEDS ORDERED: Aspirin 325 MG TAB PO SCH (09:00)
[2020-08-19] MEDS ORDERED: Polyethylene Glycol 3350 17 GM Packet PO SCH (09:00)
[2020-08-19] MEDS: HYDROcodone/Acetaminophen 5/325 mg Tablet PO PRN ×2 (09:27→13:33)
[2020-08-19] MEDS: Lactated Ringer's 1,000 ML IV SCH (14:00)
[2020-08-19 14:42] VITALS: BMI 33.7
[2020-08-19] MEDS: Amiodarone 200 MG TAB PO SCH ×2 (15:33→21:37)
[2020-08-19] MEDS ORDERED: Zolpidem Tartrate 5 MG TAB PO PRN (17:12)
[2020-08-19] MEDS ORDERED: diphenhydrAMINE 25 MG CAP PO PRN (17:12)
[2020-08-19] MEDS ORDERED: Bisacodyl 5 MG TAB PO PRN (17:12)
[2020-08-19] MEDS ORDERED: Mag-Al 1200 mg/1200 mg/30 ML UDCUP PO PRN (17:12)
[2020-08-19] MEDS ORDERED: Nitroglycerin 0.4 MG TAB (25 Tab Bottle) SL PRN (17:12)
[2020-08-19] MEDS ORDERED: Guaifenesin DM 100-10/5 ML UDCUP PO PRN (17:12)
[2020-08-19] MEDS ORDERED: Mineral Oil ENEMA PR PRN (17:12)
[2020-08-19] MEDS ORDERED: Bisacodyl 10 MG SUPP PR PRN (17:12)
[2020-08-19] MEDS: Ketorolac Tromethamine 30 MG/ML VIAL IVP SCH (18:34)
[2020-08-19] MEDS ORDERED: Metoprolol Tartrate 25 MG TAB PO SCH (21:00)
[2020-08-19] MEDS ORDERED: Atorvastatin Calcium 40 MG TAB PO SCH (21:00)
[2020-08-19] MEDS: Atorvastatin Calcium 40 MG TAB PO SCH (21:37)
[2020-08-20] MEDS: Ketorolac Tromethamine 30 MG/ML VIAL IVP SCH ×4 (00:55→17:36)
[2020-08-20 05:15] LABS: Hemoglobin 9.5 g/dL (14.0-18.0); Mean Corpuscular HGB CONC 33.4 g/dL (32.0-36.0); Mean Corpuscular Hemoglobin 32.1 pg (27.0-31.0); Mean Corpuscular Volume 96.2 fL (78.0-98.0); RBC Distribution Width 13.3 % (11.5-14.5); Red Blood Cell (RBC) Count 2.96 mill/uL (4.70-6.10); White Blood Cell (WBC) Count 11.4 thou/uL (4.8-10.8)
[2020-08-20 05:40] LABS: Anion Gap 9 mmol/L (10-20); BUN (Urea Nitrogen) 24 mg/dL (8.4-25.7); Calc. Creatinine Clearance 96 mL/min (70-130); Calcium 7.9 mg/dL (7.8-10.44); Carbon Dioxide 25 mmol/L (23-31); Chloride 104 mmol/L (98-107); Glucose 103 mg/dL (83-110); Potassium 4.3 mmol/L (3.5-5.1); Sodium 134 mmol/L (136-145)
[2020-08-20 05:41] LABS: #Basophils 0.1 thou/uL (0.0-0.2); #Eosinphils 0.1 thou/uL (0.0-0.7); #Lymphocytes 1.9 thou/uL (1.20-3.40); #Monocytes 1.1 thou/uL (0.11-0.59); #Neutrophils 8.2 thou/uL (1.40-6.50); %Basophils 0.5 % (0.0-1.0); %Monocytes 9.2 % (0.0-10.0); %Neutrophils 72.3 % (42.0-75.0); Platelet Count 113 thou/uL (130-400)
[2020-08-20] MEDS: Furosemide 40 MG TAB PO SCH (09:55)
[2020-08-20] MEDS: Potassium Chloride 10 MEQ TAB PO SCH (09:55)
[2020-08-20] MEDS: Aspirin 81 mg Enteric Coated Tablet PO SCH (09:55)
[2020-08-20] MEDS: Amiodarone 200 MG TAB PO SCH ×3 (09:56→21:28)
[2020-08-20] MEDS: Atorvastatin Calcium 40 MG TAB PO SCH (21:28)
[2020-08-21] MEDS: Ketorolac Tromethamine 30 MG/ML VIAL IVP SCH ×3 (00:07→13:37)
[2020-08-21] MEDS: Aspirin 81 mg Enteric Coated Tablet PO SCH (09:50)
[2020-08-21] MEDS: Potassium Chloride 10 MEQ TAB PO SCH (09:50)
[2020-08-21] MEDS: Furosemide 40 MG TAB PO SCH (09:50)
[2020-08-21] MEDS: Amiodarone 200 MG TAB PO SCH ×3 (09:50→20:38)
[2020-08-21] MEDS ORDERED: Allopurinol 100 MG TAB PO SCH ×3 (10:30→21:00)
[2020-08-21] MEDS ORDERED: Lisinopril 10 MG TAB PO SCH (13:00)
[2020-08-21] MEDS ORDERED: Ketorolac Tromethamine 30 MG/ML VIAL IVP SCH (14:00)
[2020-08-21] MEDS ORDERED: Ondansetron PF 4 MG/2 ML Vial IVP PRN (20:24)
[2020-08-21] MEDS ORDERED: Guaifenesin DM 100-10/5 ML UDCUP PO PRN (20:25)
[2020-08-21] MEDS ORDERED: HYDROcodone/Acetaminophen 5/325 mg Tablet PO PRN ×2 (20:25→20:26)
[2020-08-21] MEDS ORDERED: Mag-Al 1200 mg/1200 mg/30 ML UDCUP PO PRN (20:26)
[2020-08-21] MEDS ORDERED: Bisacodyl 5 MG TAB PO PRN (20:27)
[2020-08-21] MEDS ORDERED: Mineral Oil ENEMA PR PRN (20:27)
[2020-08-21] MEDS ORDERED: Bisacodyl 10 MG SUPP PR PRN (20:27)
[2020-08-21] MEDS ORDERED: Zolpidem Tartrate 5 MG TAB PO PRN (20:27)
[2020-08-21] MEDS ORDERED: diphenhydrAMINE 25 MG CAP PO PRN (20:27)
[2020-08-21] MEDS ORDERED: Nitroglycerin 0.4 MG TAB (25 Tab Bottle) SL PRN (20:28)
[2020-08-21] MEDS: Allopurinol 100 MG TAB PO SCH (20:38)
[2020-08-21] MEDS ORDERED: Atorvastatin Calcium 40 MG TAB PO SCH (21:00)
[2020-08-22] MEDS ORDERED: Potassium Chloride 10 MEQ TAB PO SCH (08:00)
[2020-08-22] MEDS ORDERED: Lisinopril 10 MG TAB PO SCH (09:00)
[2020-08-22] MEDS ORDERED: Aspirin 81 mg Enteric Coated Tablet PO SCH (09:00)
[2020-08-22] MEDS ORDERED: Furosemide 40 MG TAB PO SCH (09:00)
[2020-08-22 09:25] VITALS: BP 141/62; TEMP 97.9
[2020-08-22] MEDS: Allopurinol 100 MG TAB PO SCH (09:32)
[2020-08-22] MEDS: Amiodarone 200 MG TAB PO SCH (09:32)
== END 2020-08-22 12:28 | disposition home or self-care (01) | DRG 236 ==
LOC: SURG A 08-18 05:41 → CCU 08-18 11:17 → 2NO 08-20 18:09 → UNDODISIN 08-21 10:20
PROVIDERS: ADMIT Thoracic Surgery (Cardiothoracic Vascular Surgery); ATTEND Thoracic Surgery (Cardiothoracic Vascular Surgery)
PROC: 02100Z9 Bypass Coronary Artery, One Artery from Left Internal Mammary, Open Approach (ICD-10-PCS; principal; 2020-08-18)
PROC: 021109W Bypass Coronary Artery, Two Arteries from Aorta with Autologous Venous Tissue, Open Approach (ICD-10-PCS; 2020-08-18)
PROC: 06BQ4ZZ Excision of Left Saphenous Vein, Percutaneous Endoscopic Approach (ICD-10-PCS; 2020-08-18)
PROC: 5A1221Z Performance of Cardiac Output, Continuous (ICD-10-PCS; 2020-08-18)
DX: I25.10 Atherosclerotic heart disease of native coronary artery without angina pectoris (principal); I48.20 Chronic atrial fibrillation, unspecified; Z20.822 Contact with and (suspected) exposure to COVID-19; E11.9 Type 2 diabetes mellitus without complications; E78.5 Hyperlipidemia, unspecified; Z90.49 Acquired absence of other specified parts of digestive tract; Z95.0 Presence of cardiac pacemaker; Z86.73 Personal history of transient ischemic attack (TIA), and cerebral infarction without residual deficits
CPT/HCPCS: 36415; 36416; 36430; 71045; 80048; 82805; 85025; 85027; 85610; 85730; 86850; 86900; 86901; 93005; 93010; 93798; 94002; 94150; 97139; J0690; J1100; J1642; J1644; J1815; J1885; J2001; J2150; J2250; J2270; J2370; J2405; J2440; J2704; J2720; J3010; J3370; J3475; J3480; J3490; P9045; S0017; S0028; U0003; U0005

== ENCOUNTER 2020-08-14 16:22 | Outpatient (CLI) | payer MEDICARE | END 2020-08-14 16:23 | disposition home or self-care (01) | LOC: LABBT 16:22 | PROVIDERS: ATTEND Thoracic Surgery (Cardiothoracic Vascular Surgery) | DX: Z01.812 Encounter for preprocedural laboratory examination (principal); I25.10 Atherosclerotic heart disease of native coronary artery without angina pectoris; Z20.822 Contact with and (suspected) exposure to COVID-19 | CPT/HCPCS: 80048; 85027; 86850; 86900; 86901; U0003; U0005; 87635 ==

== ENCOUNTER 2020-09-29 09:51 | Outpatient (CLI) | payer MEDICARE ==
[2020-09-29 21:58] LABS: SARS-CoV-2 NAA Rapid Test Not Detected (NotDetected)
== END 2020-09-29 09:52 | disposition home or self-care (01) ==
LOC: LABBT 09:51
PROVIDERS: ATTEND Internal Medicine Cardiovascular Disease
DX: Z01.818 Encounter for other preprocedural examination (principal); Z20.822 Contact with and (suspected) exposure to COVID-19
CPT/HCPCS: 93005; U0002; U0005; 93010